=== PATIENT | female | born 1940 | race American Indian/Alaskan Native ===

== ENCOUNTER 2016-08-03 10:57 | Emergency (ER) | payer MEDICARE, OTHER ==
[2016-08-03 11:38] VITALS: BMI 31.8
[2016-08-03 11:41] VITALS: PULSE 83; RESP 17; TEMP 97.9; O2SAT 100
[2016-08-03] MEDS ORDERED: Oxycodone/Acetaminophen 5/325 mg Tab PO STA (12:14)
--- NOTE | 2016-08-03 12:17 | C.PDOC ---
History Of Present Illness 75 y/o female presents to ED with complaint of right ear pain and decreased hearing for 3 days. Patient seen by Dr. Jeffers, started on corticosporin ear drops, which she has been using w/o relief. Denies ear discharge or fever. Notes she has also been taking Tylenol for pain and taking Mobic everyday for arthritis. Time Seen by Provider: 08/03/16 12:02 Chief Complaint (Nursing): ENT Problem History Per: Patient History/Exam Limitations: None Onset/Duration Of Symptoms: Days Current Symptoms Are (Timing): Still Present Past Medical History Reviewed: Historical Data, Nursing Documentation, Vital Signs Vital Signs: Last Vital Signs Temp 97.9 F 08/03/16 11:38 Pulse 83 08/03/16 11:38 Resp 17 08/03/16 11:38 BP 152/75 H 08/03/16 12:30 Pulse Ox 100 08/03/16 15:15 - Medical History PMH: Gastritis, HTN Surgical History: Cholecystectomy - [facility] Procedures CLOSED ENDOSCOPIC BIOPSY OF LARGE INTESTINE (10/18/06) COLONOSCOPY (07/12/03) ESOPHAGOGASTRODUODENOSCOPY [EGD] W/CLOSED BIOPSY (10/18/06) Family History: States: Unknown Family Hx - Social History Hx Tobacco Use: No Hx Alcohol Use: No Hx Substance Use: No - Immunization History Hx Tetanus Toxoid Vaccination: No Hx Influenza Vaccination: Yes (2016) Hx Pneumococcal Vaccination: Yes Review Of Systems Except As Marked, All Systems Reviewed And Found Negative. Constitutional: Negative for: Fever, Chills ENT: Positive for: Ear Pain. Negative for: Ear Discharge, Throat Pain Respiratory: Negative for: Cough, Shortness of Breath, Wheezing Gastrointestinal: Negative for: Nausea, Vomiting Skin: Negative for: Rash Physical Exam - Physical Exam Appears: Non-toxic, No Acute Distress Skin: Normal Color, Warm, Dry Head: Atraumatic, Normacephalic Eye(s): bilateral: Normal Inspection Ear(s): Left: Normal, Right: Other (pain w movment of tragus, moderate swelling and exudates of canal) Nose: Normal Oral Mucosa: Moist Neck: Supple Neurological/Psych: Oriented x3, Normal Speech, Normal Cognition ED Course And Treatment O2 Sat by Pulse Oximetry: 100 (RA) Pulse Ox Interpretation: Normal Progress Note: Treated with Percocet. On reevaluation, patient reports improvement of pain, and is resting comfortably, in no acute distress. Advised follow up with PMD/clinic within 1-2 days. Disposition - Disposition Referrals: Barrett Jeffers MD [Staff Provider] - Disposition: HOME/ ROUTINE Disposition Time: 12:16 Condition: GOOD Prescriptions: Ciprofloxacin/Dexamethasone [Ciprodex 0.3%-0.1% 7.5 Ml] 2 drop TP BID #1 bottle oxyCODONE/Acetaminophen [Percocet 5/325 mg Tab] 1 tab PO Q4H PRN #12 tab PRN Reason: .severe pain Instructions: Otitis Externa (ED) - Clinical Impression Clinical Impression: Otitis externa - Scribe Statement The provider has reviewed the documentation as recorded by the Akil Espana Provider Attestation: All medical record entries made by the Akil were at my direction and personally dictated by me. I have reviewed the chart and agree that the record accurately reflects my personal performance of the history, physical exam, medical decision making, and the department course for this patient. I have also personally directed, reviewed, and agree with the discharge instructions and disposition.
[2016-08-03] MEDS ORDERED: Oxycodone/Acetaminophen 5/325 mg Tab ONE (12:22)
[2016-08-03 12:30] VITALS: BP 152/75
== END 2016-08-03 12:33 | disposition home or self-care (01) ==
LOC: C.ER 10:57
DX: H60.91 Unspecified otitis externa, right ear (principal)

== ENCOUNTER 2016-11-16 11:52 | Emergency (ER) | payer MEDICARE, OTHER ==
[2016-11-16 11:53] VITALS: BMI 31.8
[2016-11-16 12:02] VITALS: RESP 18
[2016-11-16] MEDS ORDERED: Lidocaine 1% Inj (20ml) INFIL STA (12:42)
[2016-11-16] MEDS ORDERED: Lidocaine 1% Inj (20ml) ONE (12:47)
[2016-11-16] MEDS ORDERED: Bacitracin 500 Units/gm Oint Foilpak UD TOP ONE (13:50)
[2016-11-16] MEDS ORDERED: Bacitracin 500 Units/gm Oint Foilpak UD ONE (13:52)
--- NOTE | 2016-11-16 14:03 | C.PDOC ---
History Of Present Illness 75 yo female c/o pain for right thumb pain. Pt notes about 3 weeks ago she was cutting her cuticles, then developed swelling and pain. Pt had the area drained in [place] , swelling improved and but then she noted her nail was not growing appropriately. Pt went to see Dr Aldrich who instructed her to come to ER for further evaluation. Time Seen by Provider: 11/16/16 12:14 Chief Complaint (Nursing): Finger,Hand,&Wrist History Per: Patient History/Exam Limitations: no limitations Onset/Duration Of Symptoms: Days Current Symptoms Are (Timing): Still Present Quality: "Pain" Exacerbating Factor(s): Nothing Recent travel outside of the [place]: No Additional History Per: Patient Past Medical History Reviewed: Historical Data, Nursing Documentation, Vital Signs Vital Signs: Last Vital Signs Temp 97.9 F 11/16/16 14:20 Pulse 61 11/16/16 14:20 Resp 18 11/16/16 14:20 BP 127/77 11/16/16 14:20 Pulse Ox 100 11/16/16 14:51 - Medical History PMH: Gastritis, HTN Surgical History: Cholecystectomy - [facility] Procedures CLOSED ENDOSCOPIC BIOPSY OF LARGE INTESTINE (10/18/06) COLONOSCOPY (07/12/03) ESOPHAGOGASTRODUODENOSCOPY [EGD] W/CLOSED BIOPSY (10/18/06) Family History: States: Unknown Family Hx - Social History Hx Tobacco Use: No Hx Alcohol Use: No Hx Substance Use: No - Immunization History Hx Tetanus Toxoid Vaccination: No Hx Influenza Vaccination: Yes (2016) Hx Pneumococcal Vaccination: Yes Review Of Systems Except As Marked, All Systems Reviewed And Found Negative. Constitutional: Negative for: Fever, Chills Musculoskeletal: Positive for: Hand Pain (right thumb pain) Neurological: Negative for: Weakness, Numbness Physical Exam - Physical Exam Appears: Non-toxic, No Acute Distress Skin: Normal Color, Warm, Dry Head: Atraumatic, Normacephalic Eye(s): bilateral: Normal Inspection Nose: Normal Oral Mucosa: Moist Chest: Symmetrical Respiratory: No Accessory Muscle Use Extremity: Normal ROM, Capillary Refill (<2 sec.), No Deformity, No Swelling, Other ((+) most proximal aspect of nail avulesed (-) swelling, no dishcarge, no erythema.) Neurological/Psych: Oriented x3, Normal Speech ED Course And Treatment O2 Sat by Pulse Oximetry: 100 (on RA) Pulse Ox Interpretation: Normal Progress Note: Pt was evaluated by Dr. Aldrich in the ER and removed the nail. Pt is being discharged home and is instructed to follow up with Dr. Aldrich as scheduled. Disposition - Disposition Referrals: Maurice Aldrich MD [Staff Provider] - Disposition: HOME/ ROUTINE Disposition Time: 14:09 Condition: STABLE Additional Instructions: Follow up with your primary medical doctor or clinic in 2-5 days for further evaluation. Take medications as prescribed. Return to the emergency department at any time if symptoms persist or worsen. 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 - Scribe Statement The provider has reviewed the documentation as recorded by the Scribe Del Ingram All medical record entries made by the Scribe were at my direction and personally dictated by me. I have reviewed the chart and agree that the record accurately reflects my personal performance of the history, physical exam, medical decision making, and the department course for this patient. I have also personally directed, reviewed, and agree with the discharge instructions and disposition.
[2016-11-16 14:22] VITALS: BP 127/77; PULSE 61; TEMP 97.9
[2016-11-16 14:50] VITALS: O2SAT 100
--- NOTE | 2016-12-13 14:38 | OP ---
CONSULTATION AND PROCEDURE NOTE This is a 75-year-old female who presented to the ER with pain in right arm along with an infection that was draining pus and they are cuticles. She also had necrosis of the nail bed and was seen at surgical consultation in ER. GROSS FINDINGS: There was a nail bed infection along with a paronychia which was incised and drained. Also, under local anesthesia, the nail was removed. The wounds were dressed thoroughly. The patient was given a prescription for antibiotics and told to return to my office in 1 week. Maurice Aldrich MD
== END 2016-11-16 14:31 | disposition home or self-care (01) ==
LOC: C.ER 11:52
DX: S61.101A Unspecified open wound of right thumb with damage to nail, initial encounter (principal); W45.8XXA Other foreign body or object entering through skin, initial encounter; Y93.E8 Activity, other personal hygiene

== ENCOUNTER 2018-02-05 10:11 | Inpatient (IN) | payer MEDICARE, OTHER ==
[2018-02-05 10:12] VITALS: BMI 31.8
--- NOTE | 2018-02-05 10:35 | C.PDOC ---
History Of Present Illness 77 years old female with PMHx of COPD presents to ED for complaints of worsening new onset shortness of breath that began at 11:28PM. Patient also reports some bilateral facial and mouth swelling that began yesterday but now improved. Patient states she started on a new glaucoma medication 1 week ago and since then the swelling was very bad that she would accidentally bite the inside of her mouth. However, patient states that swelling today is much improved compared to last night. Patient reports past echo test for unknown reasons. Denies Hx of CHF. Patient reports she takes losartan and hctz at home. Denies chest pain, fever, chills, or any other complaints. Time Seen by Provider: 02/05/18 10:23 Chief Complaint (Nursing): Shortness Of Breath History Per: Patient History/Exam Limitations: no limitations Onset/Duration Of Symptoms: Hrs Current Symptoms Are (Timing): Still Present Recent travel outside of the [place]: No Past Medical History Reviewed: Historical Data, Nursing Documentation, Vital Signs Vital Signs: Last Vital Signs Temp 97.3 F L 02/05/18 10:15 Pulse 91 H 02/05/18 10:15 Resp 18 02/05/18 10:15 BP 188/78 H 02/05/18 10:15 Pulse Ox 100 02/05/18 10:15 - Medical History PMH: Gastritis, HTN Surgical History: Cholecystectomy - [facility] Procedures CLOSED ENDOSCOPIC BIOPSY OF LARGE INTESTINE (10/18/06) COLONOSCOPY (07/12/03) ESOPHAGOGASTRODUODENOSCOPY [EGD] W/CLOSED BIOPSY (10/18/06) Family History: States: Unknown Family Hx - Social History Hx Tobacco Use: No Hx Alcohol Use: No Hx Substance Use: No - Immunization History Hx Tetanus Toxoid Vaccination: No Hx Influenza Vaccination: Yes Hx Pneumococcal Vaccination: No Review Of Systems Constitutional: Negative for: Fever, Chills ENT: Positive for: Mouth Swelling Cardiovascular: Negative for: Chest Pain Respiratory: Positive for: Shortness of Breath Gastrointestinal: Negative for: Nausea, Vomiting, Diarrhea Skin: Positive for: Other (Bilateral facial and mouth swelling ). Negative for: Rash Neurological: Negative for: Weakness, Numbness Physical Exam - Physical Exam Appears: Non-toxic, No Acute Distress Skin: Normal Color, Warm, Dry, No Rash Head: Atraumatic Eye(s): left: Other (Minimal periorbital edema, non-pitting. ) Oral Mucosa: Moist Tongue: Normal Appearing, No Swelling Throat: Normal, No Erythema, No Exudate, No Drooling Neck: Normal ROM, Supple Chest: Symmetrical, No Tenderness Cardiovascular: Rhythm Regular Respiratory: Normal Breath Sounds, No Rales, No Rhonchi, No Wheezing, Other (NARD. Clear to auscultation bilaterally. Speaking in full sentences. No retraction. ) Gastrointestinal/Abdominal: Soft, No Tenderness Extremity: Normal ROM, No Pedal Edema Extremity: Bilateral: Atraumatic, Normal Color And Temperature, Normal ROM Pulses: Left Radial: Normal, Right Radial: Normal Neurological/Psych: Oriented x3, Normal Speech Gait: Steady ED Course And Treatment - Laboratory Results Result Diagrams: 02/05/18 11:00 02/05/18 11:00 O2 Sat by Pulse Oximetry: 100 (RA) Pulse Ox Interpretation: Normal - Radiology CXR: Interpreted by Me, Viewed By Me CXR Interpretation: Yes: No Acute Disease Nexus Criteria: Negative - Other Rad CXR X-Ray: Viewed By Me, Read By Radiologist Interpretation: Chest x-ray single frontal view. HISTORY: Shortness of breath. COMPARISON: 11/04/2012. Findings: Mild venous congestion. Tortuous ectatic aorta. Mild cardiomegaly. Degenerative changes in the spine. Impression: Mild venous congestion. Tortuous ectatic aorta. Mild cardiomegaly. Progress - Re-Evaluation Re-evaluation Note: 02/05/18 12:39 NARD VSS. +DIMER. UNABLE TO PERFORM CTA DUE TO ABN BUN/CREAT. NO V/Q AVAIL @ THIS TIME. D/W DR AMARO WILL ADMIT - Data Reviewed Data Reviewed: Lab, Diagnostic imaging, EKG, Old records Medical Decision Making Medical Decision Making: Plan: * EKG * Blood work * CXR Progress: CXR: * Negative EKG: * Sinus rhythm with 1st degree AV block at 80 bpm * Left BBB Disposition Counseled Patient/Family Regarding: Studies Performed, Diagnosis - Disposition Disposition: HOSPITALIZED Disposition Time: 12:41 Condition: STABLE Forms: [facility] (Nepali) - POA Present On Arrival: None - Clinical Impression Clinical Impression: Dyspnea, D-dimer, elevated, Renal insufficiency - PA / DRAG OUT MAN / Resident Statement MD/DO has reviewed & agrees with the documentation as recorded. - Scribe Statement Tiana Crystal All medical record entries made by the Scribe were at my direction and personally dictated by me. I have reviewed the chart and agree that the record accurately reflects my personal performance of the history, physical exam, medical decision making, and the department course for this patient. I have also personally directed, reviewed, and agree with the discharge instructions and disposition.
[2018-02-05 11:05] LABS: BASO % 0.5 % (0.0-2.0); EOS # 0.1 K/uL (0.0-0.7); EOS % 1.8 % (0.0-4.0); HEMOGLOBIN 11.9 g/dL (11.0-16.0); LYMPH # 1.7 K/uL (1.0-4.3); LYMPH % 27.3 % (20.0-40.0); MEAN CELL VOLUME 93.3 fL (81.0-99.0); MEAN CORPUSCULAR HEMOGLOBIN 31.9 pg (27.0-31.0); MEAN CORPUSCULAR HGB CONC 34.2 g/dL (33.0-37.0); MEAN PLATELET VOLUME 8.7 fL (7.2-11.7); MONO # 0.6 K/uL (0.0-0.8); MONO % 10.4 % (0.0-10.0); NEUT # 3.7 K/uL (1.8-7.0); RBC 3.72 Mil/uL (3.80-5.20); RED CELL DISTRIBUTION WIDTH 13.4 % (11.5-14.5); WHITE BLOOD COUNT 6.2 K/uL (4.8-10.8)
[2018-02-05 11:17] LABS: ALB/GLOB RATIO 1.3 (1.0-2.1); CALCIUM 9.2 mg/dl (8.6-10.4)
--- NOTE | 2018-02-05 11:19 | RAD ---
Chest x-ray single frontal view HISTORY: Shortness of breath. COMPARISON: 11/04/2012 Findings: Mild venous congestion. Tortuous ectatic aorta. Mild cardiomegaly. Degenerative changes in the spine. Impression: Mild venous congestion. Tortuous ectatic aorta. Mild cardiomegaly.
[2018-02-05 11:29] LABS: TROPONIN I 0.017 ng/mL (0.00-0.120)
[2018-02-05] MEDS ORDERED: Enoxaparin 80 mg Syringe SC STA (13:16)
[2018-02-05 18:18] LABS: INR 1.1
[2018-02-05] MEDS ORDERED: Heparin25000 units/250ml 1/2NS 25,000 UNITS/250 ML BAG IV PRN (18:46)
[2018-02-05] MEDS: Dorzolamide 2% Opht Sol 10ml OU SCH (21:54)
--- NOTE | 2018-02-06 09:51 | CARD ---
APPROVED REPORT Date of service: 02/05/2018 EKG Measurement Heart [id number] MD [id number] <Conclusion> Sinus rhythm with 1st degree AV block Left axis deviation Left bundle branch block Abnormal ECG
[2018-02-06] MEDS: Dorzolamide 2% Opht Sol 10ml OU SCH ×2 (09:57→17:42)
[2018-02-06] MEDS: Heparin25000 units/250ml 1/2NS 25,000 UNITS/250 ML BAG IV PRN ×2 (10:25→19:01)
--- NOTE | 2018-02-06 12:00 | US ---
Date of service: 02/06/2018 PROCEDURE: Ultrasound of the Kidneys HISTORY: Elevated BUN CREAT COMPARISON: None available. TECHNIQUE: Sonogram of the kidneys. FINDINGS: RIGHT KIDNEY: Measures: 10.4 x 6.0 x 5.1 cm. Echogenic renal parenchyma. 3.8 x 4.5 x 4.2 cm and 2.7 x 2.8 x 3.0 cm upper pole renal cysts. No obstructing calculus or hydronephrosis identified. LEFT KIDNEY: Measures: 11.0 x 5.2 x 4.4 cm. Echogenic renal parenchyma. No evidence of hydronephrosis, obstructing calculus, or renal cyst. OTHER FINDINGS: Limited visualization of the urinary bladder appears grossly unremarkable. IMPRESSION: Echogenic renal parenchyma may be seen in the setting of medical renal disease. 3.8 x 4.5 x 4.2 cm and 2.7 x 2.8 x 3.0 cm right upper pole renal cysts.
--- NOTE | 2018-02-06 12:52 | CP.PCM.CON ---
History of Present Illness - History of Present Illness History of Present Illness: 77 years old female with PMHx of COPD presents to ED for complaints of worsening new onset shortness of breath that began at 11:28PM. Patient also reports some bilateral facial and mouth swelling that began yesterday but now improved. Patient states she started on a new glaucoma medication 1 week ago and since then the swelling was very bad that she would accidentally bite the inside of her mouth. However, patient states that swelling today is much improved compared to last night. Patient reports past echo test for unknown reasons. Denies Hx of CHF. Patient reports she takes losartan and hctz at home. Denies chest pain, fever, chills, or any other complaints. Denies CKD hx Renal US shows echogenic kidneys Past Medical History Reviewed: Historical Data, Nursing Documentation, Vital Signs Vital Signs: - Medical History PMH: Gastritis, HTN Surgical History: Cholecystectomy, hysterectomy - [facility] Procedures CLOSED ENDOSCOPIC BIOPSY OF LARGE INTESTINE (10/18/06) COLONOSCOPY (07/12/03) ESOPHAGOGASTRODUODENOSCOPY [EGD] W/CLOSED BIOPSY (10/18/06) Family History: States: Unknown Family Hx, no CKD - Social History Hx Tobacco Use: No Hx Alcohol Use: No Hx Substance Use: No - Immunization History Hx Tetanus Toxoid Vaccination: No Hx Influenza Vaccination: Yes Hx Pneumococcal Vaccination: No Review Of Systems Constitutional: Negative for: Fever, Chills ENT: Positive for: Mouth Swelling Cardiovascular: Negative for: Chest Pain Respiratory: Positive for: Shortness of Breath Gastrointestinal: Negative for: Nausea, Vomiting, Diarrhea Skin: Positive for: Other (Bilateral facial and mouth swelling ). Negative for: Rash Neurological: Negative for: Weakness, Numbness Review of Systems - Constitutional Constitutional: absent: As Per HPI, Anorexia, Chills, Daytime Sleepiness, Excessive Sweating, Fatigue, Fever, Frequent Falls, Headache, Increased Appetite, Lethargy, Malaise, Night Sweats, Snoring, Sleep Apnea, Weight Gain, Weight Loss, Weakness, Other - EENT Eyes: absent: As Per HPI, Blind Spots, Blurred Vision, Change in Vision, Decreased Night Vision, Diplopia, Discharge, Dry Eye, Exophthalmos, Floaters, Irritation, Itchy Eyes, Loss of Peripheral Vision, Pain, Photophobia, Requires Corrective Lenses, Sees Flashes, Spots in Vision, Tunnel Vision, Other Visual Disturbances, Loss of Vision, Other Ears: absent: As Per HPI, Decreased Hearing, Ear Discharge, Ear Pain, Tinnitus, Abnormal Hearing, Disequilibrium, Dizziness, Other - Cardiovascular Cardiovascular: Dyspnea on Exertion - Respiratory Respiratory: Cough, Dyspnea on Exertion - Gastrointestinal Gastrointestinal: absent: As Per HPI, Abdominal Pain, Belching, Bloating, Change in Bowel Habits, Change in Stool Character, Coffee Ground Emesis, Constipation, Cramping, Diarrhea, Dyspepsia, Dysphagia, Early Satiety, Excessive Flatus, Fecal Incontinence, Heartburn, Hematemesis, Hematochezia, Loose Stools, Melena, Nausea, Odynophagia, Temesmus, Vomiting, Other - Genitourinary Genitourinary: absent: As Per HPI, Change in Urinary Stream, Difficulty Urinating, Dysuria, Flank Pain, Hematuria, Pyuria, Nocturia, Urinary Incontinence, Urinary Frequency, Urinary Hesitance, Urinary Urgency, Voiding Freq/Small Amts, Freq UTI, Hx Renal/Bladder Calculi, Hx /Renal Surgery, Bladder Distension, Other - Musculoskeletal Musculoskeletal: Muscle Cramps, Muscle Weakness - Neurological Neurological: Weakness Past Patient History - Infectious Disease Hx of Infectious Diseases: None - Past Medical History & Family History Past Medical History?: Yes Past Family History: Reviewed and not pertinent - Past Social History Smoking Status: Never Smoked Chewing Tobacco Use: No Cigar Use: No Alcohol: Occasional Drugs: Denies Home Situation {Lives}: Alone - CARDIAC Hx Hypertension: Yes - NEUROLOGICAL Hx Neurological Disorder: No - HEENT Hx HEENT Problems: Yes Hx Cataracts: Yes (left eye) Hx Glaucoma: Yes - RENAL Hx Chronic Kidney Disease: No - ENDOCRINE/METABOLIC Hx Endocrine Disorders: No - HEMATOLOGICAL/ONCOLOGICAL Hx Blood Transfusions: No - INTEGUMENTARY Hx Dermatological Problems: No - MUSCULOSKELETAL/RHEUMATOLOGICAL Hx Musculoskeletal Disorders: Yes Hx Falls: No Other/Comment: gout - GASTROINTESTINAL Hx Gastrointestinal Disorders: Yes Hx Gastritis: Yes - GENITOURINARY/GYNECOLOGICAL Hx Genitourinary Disorders: No - PSYCHIATRIC Hx Substance Use: No - SURGICAL HISTORY Hx Cholecystectomy: Yes - ANESTHESIA Hx Anesthesia: Yes Hx Anesthesia Reactions: No Hx Malignant Hyperthermia: No Meds Allergies/Adverse Reactions: Allergies Allergy/AdvReac Type Severity Reaction Status Date / Time No Known Allergies Allergy Verified 02/05/18 10:15 - Medications Medications: Current Medications Acetaminophen (Tylenol 325mg Tab) 650 mg PO ONCE PRN PRN Reason: Pain, severe (8-10) Last Admin: 02/06/18 03:54 Dose: 650 mg Acetazolamide (Diamox 250 Mg Tab) 250 mg PO BID [facility] Last Admin: 02/06/18 09:57 Dose: 250 mg Colchicine (Colocrys) 0.6 mg PO DAILY [facility] Last Admin: 02/06/18 09:57 Dose: 0.6 mg Dorzolamide HCl (Trusopt) 0 ml OU BID [facility] Last Admin: 02/06/18 09:57 Dose: 1 u Heparin Sodium/Sodium Chloride (Heparin 39402 Units/250ml 1/2 Normal Saline) 25,000 units in 250 mls @ 13.268 mls/hr IV .[id number] PRN; Protocol PRN Reason: ADJUST RATE PER PROTOCOL Last Admin: 02/06/18 10:25 Dose: 15 units/kg/hr, 13.268 mls/hr Meclizine HCl (Antivert) 25 mg PO BID [facility] Last Admin: 02/06/18 09:57 Dose: 25 mg Montelukast Sodium (Singulair) 10 mg PO [facility] Pregabalin (Lyrica) 50 mg PO BID [facility] Last Admin: 02/06/18 09:57 Dose: 50 mg Physical Exam - Constitutional Appears: Non-toxic, Chronically Ill - Head Exam Head Exam: ATRAUMATIC, NORMAL INSPECTION - Eye Exam Eye Exam: EOMI, Normal appearance - Neck Exam Neck exam: Positive for: Normal Inspection. Negative for: Tenderness - Respiratory Exam Respiratory Exam: Clear to Auscultation Bilateral, NORMAL BREATHING PATTERN - Cardiovascular Exam Cardiovascular Exam: REGULAR RHYTHM, +S1 - GI/Abdominal Exam GI & Abdominal Exam: Firm. absent: Soft - Extremities Exam Extremities exam: Positive for: normal inspection. Negative for: tenderness - Neurological Exam Neurological exam: Alert, CN II-XII Intact - Skin Skin Exam: Dry, Warm Results - Vital Signs Recent Vital Signs: Last Vital Signs Temp 98.0 F 02/06/18 08:25 Pulse 66 02/06/18 08:25 Resp 20 02/06/18 08:25 BP 111/60 02/06/18 08:25 Pulse Ox 98 02/06/18 08:25 - Labs Result Diagrams: 02/05/18 11:00 02/05/18 11:00 Labs: Laboratory Results - last 24 hr 02/05/18 02/06/18 02/06/18 18:03 03:30 07:12 PT 12.0 INR 1.1 APTT 42 H > 400 H* D 101 H* D Assessment & Plan (1) CKD (chronic kidney disease) stage 4, GFR 15-29 ml/min Status: Acute (2) CHF (congestive heart failure) Status: Acute (3) Hypertensive chronic kidney disease with stage 1 through stage 4 chronic kidney disease, or unspecified chronic kidney disease Status: Acute - Assessment and Plan (Free Text) Plan: add diuretic check for proteinuria repeat chemistries; check other renal parameters monitor BP
--- NOTE | 2018-02-06 13:21 | NM ---
Date of service: 02/06/2018 COMPARISON: February 05, 2018. TECHNIQUE: 10.5 mCi technetium 99-m [id number] Gas. 3.4 mCI technetium 99-m MAA administered intravenously. FINDINGS: VENTILATION COMPONENT: Normal. PERFUSION COMPONENT: Heterogeneous distribution of radionuclide. No geographic, segmental, lobar abnormalities apparent on the present examination. IMPRESSION: Low probability ventilation perfusion scan for pulmonary embolism.
--- NOTE | 2018-02-06 13:24 | CP.PCM.PN ---
Subjective - Date & Time of Evaluation Date of Evaluation: 02/06/18 Time of Evaluation: 07:15 - Subjective Subjective: Resident Progress Note for Dr. Jeffers 77 years old female with past medical history of COPD, gastritis, and hypertension presents to ED for complaints of shortness of breath. Patient reports that her shortness of breath started a few days ago, but it became worse last night around midnight. The shortness of breath did not bother her unless she start walking around the house. Patient also reports some facial swelling that began yesterday but now improved. Patient states she started on a new glaucoma medication 1 week ago by her opthalmologist. Currently she does not complain of facial swelling. Patient denies having history of heart or kidney conditions. She further denies fever, chills, chest pain, dizziness, abdominal pain, nausea, vomiting, diarrhea, or urinary symptoms. PMD: Dr. Jeffers, ophthalmology: Dr. Munroe PMHx: COPD, gastritis, and hypertension PSHx: cholecystectomy Allergy: NKDA Social: Denies tobacco and drug use, admits to social alcohol consumption. Lives alone. Home Meds: simvastatin, lyrica, singulair, meloxicam, antivert, losartan, HCTZ, budesonide/formoterol, symbicort Objective - Vital Signs/Intake and Output Vital Signs (last 24 hours): Temp Pulse Resp BP Pulse Ox 98.0 F 66 20 111/60 98 02/06/18 08:25 02/06/18 08:25 02/06/18 08:25 02/06/18 08:25 02/06/18 08:25 Intake and Output: 02/06/18 02/06/18 06:59 18:59 Intake Total 157 Balance 157 - Medications Medications: Current Medications Acetaminophen (Tylenol 325mg Tab) 650 mg PO ONCE PRN PRN Reason: Pain, severe (8-10) Last Admin: 02/06/18 03:54 Dose: 650 mg Acetazolamide (Diamox 250 Mg Tab) 250 mg PO BID [facility] Last Admin: 02/06/18 09:57 Dose: 250 mg Colchicine (Colocrys) 0.6 mg PO DAILY [facility] Last Admin: 02/06/18 09:57 Dose: 0.6 mg Dorzolamide HCl (Trusopt) 0 ml OU BID [facility] Last Admin: 02/06/18 09:57 Dose: 1 u Furosemide (Lasix) 20 mg PO DAILY [facility] Home Med (Bimatoprost [Lumigan]) 1 drop EACHEYE HS [facility] Home Med (Budesonide/Formoterol Fumarate [Symbicort 160-4.5 Mcg Inhaler]) 10.2 gm IH BID [facility] Home Med (Losartan/Hydrochlorothiazide [Hyzaar 100-25 Tablet]) 1 tab PO DAILY [facility] Home Med (Simvastatin [Simvastatin]) 10 mg PO DAILY [facility] Heparin Sodium/Sodium Chloride (Heparin 08483 Units/250ml 1/2 Normal Saline) 25,000 units in 250 mls @ 13.268 mls/hr IV .[id number] PRN; Protocol PRN Reason: ADJUST RATE PER PROTOCOL Last Admin: 02/06/18 10:25 Dose: 15 units/kg/hr, 13.268 mls/hr Meclizine HCl (Antivert) 25 mg PO BID [facility] Last Admin: 02/06/18 09:57 Dose: 25 mg Montelukast Sodium (Singulair) 10 mg PO [facility] Pregabalin (Lyrica) 50 mg PO BID [facility] Last Admin: 02/06/18 09:57 Dose: 50 mg - Labs Labs: 02/05/18 11:00 02/05/18 11:00 PT 12.0 SECONDS (9.7-12.2) 02/05/18 18:03 INR 1.1 02/05/18 18:03 APTT 101 SECONDS (21-34) H* D 02/06/18 07:12 - Additional Findings Additional findings: - Constitutional Appears: Non-toxic, Chronically Ill - Head Exam Head Exam: ATRAUMATIC, NORMAL INSPECTION - Eye Exam Eye Exam: EOMI, Normal appearance - Neck Exam Neck exam: Positive for: Normal Inspection. Negative for: Tenderness - Respiratory Exam Respiratory Exam: Clear to Auscultation Bilateral, NORMAL BREATHING PATTERN - Cardiovascular Exam Cardiovascular Exam: REGULAR RHYTHM, +S1 - GI/Abdominal Exam GI & Abdominal Exam: Firm. absent: Soft - Extremities Exam Extremities exam: Positive for: normal inspection. Negative for: tenderness - Neurological Exam Neurological exam: Alert, CN II-XII Intact - Skin Skin Exam: Dry, Warm Assessment and Plan - Assessment and Plan (Free Text) Assessment: Dyspnea -COPD vs CHF vs PE etiology -Elevated D-Dimer 529 -Follow up on V/Q scan -O2 Saturation unremarkable -CXR shows venous congestions -BNP 101 -Heparin DVT/PE protocol CKD -BUN/Cr 55/2.4 -Nephrology consulted, Dr. Carroll help appreciated -Follow up renal U/S, labs COPD -Fluticasone/Vilanterol 100-25mcg -Singulair 10mg HS CHF -Start Lasix 20mg po HTN -HCTZ 25mg -Losartan 100mg Glaucoma -Acetazolamide 250mg BID -Dorzolamide OU BID Prophylactic measures -SCD -GI ppx not indicated Case discussed with attending Dr. Jeffers
[2018-02-06] MEDS: Rosuvastatin Calcium 2.5 mg Tab PO SCH (22:14)
[2018-02-06] MEDS: Latanoprost 2.5 ml Opht Soln OU SCH (22:15)
[2018-02-06 22:42] LABS: SQUAMOUS EPITHIAL 1 /hpf (0-5); URINE BACTERIA FEW (<OCC); URINE BILIRUBIN NEGATIVE (NEGATIVE); URINE BLOOD NEGATIVE (NEGATIVE); URINE CLARITY Clear (Clear); URINE COLOR Straw (YELLOW); URINE GLUCOSE (UA) NORMAL (Normal); URINE PROTEIN NEGATIVE (NEGATIVE); URINE UROBILINOGEN NORMAL mg/dL (0.2-1.0)
[2018-02-06 22:43] LABS: URINE LEUKOCYTE ESTERASE 1+ Leu/uL (Negative)
[2018-02-07] MEDS ORDERED: Heparin25000 units/250ml 1/2NS 25,000 UNITS/250 ML BAG IV PRN (03:15)
[2018-02-07 07:13] LABS: BASO % 0.4 % (0.0-2.0); EOS # 0.1 K/uL (0.0-0.7); EOS % 1.9 % (0.0-4.0); HEMOGLOBIN 12.4 g/dL (11.0-16.0); LYMPH # 2.2 K/uL (1.0-4.3); LYMPH % 38.9 % (20.0-40.0); MEAN CELL VOLUME 94.8 fL (81.0-99.0); MEAN CORPUSCULAR HEMOGLOBIN 32.4 pg (27.0-31.0); MEAN CORPUSCULAR HGB CONC 34.2 g/dL (33.0-37.0); MEAN PLATELET VOLUME 8.8 fL (7.2-11.7); MONO # 0.6 K/uL (0.0-0.8); NEUT # 2.7 K/uL (1.8-7.0); NEUT % 47.8 % (50.0-75.0); RBC 3.84 Mil/uL (3.80-5.20); RED CELL DISTRIBUTION WIDTH 13.5 % (11.5-14.5); WHITE BLOOD COUNT 5.6 K/uL (4.8-10.8)
[2018-02-07 07:39] LABS: ALB/GLOB RATIO 1.2 (1.0-2.1); ALBUMIN 3.7 g/dL (3.5-5.0); CALCIUM 9.6 mg/dl (8.6-10.4)
[2018-02-07] MEDS: Fluticasone-Vilanterol 100/25mcg Diskus INH SCH (07:45)
[2018-02-07] MEDS: Dorzolamide 2% Opht Sol 10ml OU SCH ×2 (09:19→17:43)
--- NOTE | 2018-02-07 13:25 | CP.PCM.PN ---
Subjective - Date & Time of Evaluation Date of Evaluation: 02/07/18 Time of Evaluation: 13:24 - Subjective Subjective: renal us echogenic kidneys no proteinuria creatinine down to 1.9 meds reviewed seen in echo feels well, no f/c/dizziness/headache/n/v/d/dyspnea/cp/dysuria/hematuria/ rash Objective - Vital Signs/Intake and Output Vital Signs (last 24 hours): Temp Pulse Resp BP Pulse Ox 97.5 F L 82 20 107/66 100 02/07/18 08:39 02/07/18 09:18 02/07/18 08:39 02/07/18 09:19 02/07/18 08:39 Intake and Output: 02/07/18 02/07/18 06:59 18:59 Intake Total 513.6 Balance 513.6 - Medications Medications: Current Medications Acetaminophen (Tylenol 325mg Tab) 650 mg PO ONCE PRN PRN Reason: Pain, severe (8-10) Last Admin: 02/06/18 03:54 Dose: 650 mg Acetazolamide (Diamox 250 Mg Tab) 250 mg PO BID [facility] Last Admin: 02/07/18 09:19 Dose: 250 mg Colchicine (Colocrys) 0.6 mg PO DAILY [facility] Last Admin: 02/07/18 09:19 Dose: 0.6 mg Dorzolamide HCl (Trusopt) 0 ml OU BID [facility] Last Admin: 02/07/18 09:19 Dose: 1 drop Fluticasone/Vilanterol (Breo Ellipta 100-25 Mcg Inh) 1 puff INH RQD [facility] Last Admin: 02/07/18 07:45 Dose: 1 puff Furosemide (Lasix) 20 mg PO DAILY [facility] Last Admin: 02/07/18 09:19 Dose: 20 mg Heparin Sodium/Sodium Chloride (Heparin 50063 Units/250ml 1/2 Normal Saline) 25,000 units in 250 mls @ 10.614 mls/hr IV .[id number] PRN; Protocol PRN Reason: ADJUST RATE PER PROTOCOL Last Admin: 02/07/18 03:07 Dose: 9 units/kg/hr, 7.961 mls/hr Latanoprost (Xalatan Opht) 1 ml OU HS [facility] Last Admin: 02/06/18 22:15 Dose: 1 ml Meclizine HCl (Antivert) 25 mg PO BID [facility] Last Admin: 02/07/18 09:19 Dose: 25 mg Montelukast Sodium (Singulair) 10 mg PO [facility] Last Admin: 02/06/18 22:14 Dose: 10 mg Pregabalin (Lyrica) 50 mg PO BID [facility] Last Admin: 02/07/18 09:19 Dose: 50 mg Rosuvastatin Calcium (Crestor) 2.5 mg PO [facility] Last Admin: 02/06/18 22:14 Dose: 2.5 mg - Labs Labs: 02/07/18 06:56 02/07/18 06:56 PT 12.0 SECONDS (9.7-12.2) 02/05/18 18:03 INR 1.1 02/05/18 18:03 APTT 92 SECONDS (21-34) H D 02/07/18 11:17 - Constitutional Appears: Non-toxic, No Acute Distress - Head Exam Head Exam: NORMAL INSPECTION, NORMOCEPHALIC - Eye Exam Eye Exam: Normal appearance, PERRL - ENT Exam ENT Exam: Mucous Membranes Moist, Normal Exam - Neck Exam Neck Exam: Full ROM, Normal Inspection - Respiratory Exam Respiratory Exam: Clear to Ausculation Bilateral, NORMAL BREATHING PATTERN - Cardiovascular Exam Cardiovascular Exam: REGULAR RHYTHM, RRR - GI/Abdominal Exam GI & Abdominal Exam: Distended, Soft, Diminished Bowel Sounds - Extremities Exam Extremities Exam: Full ROM, Normal Inspection - Neurological Exam Neurological Exam: Alert, Awake, Oriented x3 - Psychiatric Exam Psychiatric exam: Normal Affect, Normal Mood - Skin Skin Exam: Intact, Warm Assessment and Plan (1) CHF (congestive heart failure) Status: Acute (2) CKD (chronic kidney disease) stage 4, GFR 15-29 ml/min Status: Acute (3) Dyspnea Status: Acute (4) Renal insufficiency Status: Acute - Assessment and Plan (Free Text) Assessment: hold losartan, hctz follow echo improving renal function
--- NOTE | 2018-02-07 14:56 | CP.PCM.PN ---
Subjective - Date & Time of Evaluation Date of Evaluation: 02/07/18 Time of Evaluation: 10:20 - Subjective Subjective: Medicine progress note ( Dr. Jeffers's service) Patient was seen and examined at bedside. Patient reports that she is doing well with improving symptoms but still admits to shortness of breath/ chest discomfort with ambulation. Patient is ambulating around the halls. Patient denies any symptoms of fever, chills, nausea, vomiting, palpitations, dizziness, abdominal pain, diarrhea/constipation, numbness/tingling. Objective - Vital Signs/Intake and Output Vital Signs (last 24 hours): Temp Pulse Resp BP Pulse Ox 97.5 F L 64 20 107/66 100 02/07/18 08:39 02/07/18 12:00 02/07/18 08:39 02/07/18 09:19 02/07/18 08:39 Intake and Output: 02/07/18 02/07/18 06:59 18:59 Intake Total 513.6 463.68 Balance 513.6 463.68 - Medications Medications: Current Medications Acetaminophen (Tylenol 325mg Tab) 650 mg PO ONCE PRN PRN Reason: Pain, severe (8-10) Last Admin: 02/06/18 03:54 Dose: 650 mg Acetazolamide (Diamox 250 Mg Tab) 250 mg PO BID [facility] Last Admin: 02/07/18 09:19 Dose: 250 mg Colchicine (Colocrys) 0.6 mg PO DAILY [facility] Last Admin: 02/07/18 09:19 Dose: 0.6 mg Dorzolamide HCl (Trusopt) 0 ml OU BID [facility] Last Admin: 02/07/18 09:19 Dose: 1 drop Fluticasone/Vilanterol (Breo Ellipta 100-25 Mcg Inh) 1 puff INH RQD [facility] Last Admin: 02/07/18 07:45 Dose: 1 puff Furosemide (Lasix) 20 mg PO DAILY [facility] Last Admin: 02/07/18 09:19 Dose: 20 mg Heparin Sodium/Sodium Chloride (Heparin 21138 Units/250ml 1/2 Normal Saline) 25,000 units in 250 mls @ 10.614 mls/hr IV .[id number] PRN; Protocol PRN Reason: ADJUST RATE PER PROTOCOL Last Admin: 02/07/18 03:07 Dose: 9 units/kg/hr, 7.961 mls/hr Latanoprost (Xalatan Opht) 1 ml OU HS [facility] Last Admin: 02/06/18 22:15 Dose: 1 ml Meclizine HCl (Antivert) 25 mg PO BID [facility] Last Admin: 02/07/18 09:19 Dose: 25 mg Montelukast Sodium (Singulair) 10 mg PO [facility] Last Admin: 02/06/18 22:14 Dose: 10 mg Pregabalin (Lyrica) 50 mg PO BID [facility] Last Admin: 02/07/18 09:19 Dose: 50 mg Rosuvastatin Calcium (Crestor) 2.5 mg PO [facility] Last Admin: 02/06/18 22:14 Dose: 2.5 mg - Labs Labs: 02/07/18 06:56 02/07/18 06:56 PT 12.0 SECONDS (9.7-12.2) 02/05/18 18:03 INR 1.1 02/05/18 18:03 APTT 92 SECONDS (21-34) H D 02/07/18 11:17 - Constitutional Appears: Well, No Acute Distress - Head Exam Head Exam: ATRAUMATIC, NORMAL INSPECTION - Eye Exam Eye Exam: EOMI, Normal appearance - ENT Exam ENT Exam: Mucous Membranes Moist - Respiratory Exam Respiratory Exam: Clear to Ausculation Bilateral, NORMAL BREATHING PATTERN. absent: Decreased Breath Sounds, Prolonged Expiratory Phase, Rhonchi, Wheezes, Respiratory Distress - Cardiovascular Exam Cardiovascular Exam: REGULAR RHYTHM, +S1, +S2 - GI/Abdominal Exam GI & Abdominal Exam: Soft, Normal Bowel Sounds. absent: Distended, Firm, Guarding, Rigid, Tenderness - Extremities Exam Extremities Exam: Normal Inspection. absent: Calf Tenderness, Pedal Edema - Neurological Exam Neurological Exam: Alert, Awake, Normal Gait, Oriented x3 - Psychiatric Exam Psychiatric exam: Normal Affect Assessment and Plan (1) Dyspnea Assessment & Plan: Possibly 2/2 CHF or COPD Consultation: Cardiology, Dr. Wylie----> Help appreciated * Management as per recommendation Imaging/Labs: Chest x-ray: Mild venous congestion. Tortuous ectatic aorta. Mild cardiomegaly F/u Echocardiogram BNP: 101 Troponin: 0.0170 Elevated D-dimer: 529 Medication: - Lasix 20mg PO daily - Breo-ellipta 1puff INH daily -Singulair 10mg PO Status: Acute (2) D-dimer, elevated Assessment & Plan: Lung V/Q scan in light of MARKUS: Low probability for pulmonary embolism Status: Acute (3) MARKUS (acute kidney injury) Assessment & Plan: Improving Consultation: - Nephrology, Dr. Nicholson---> Help appreciated * Management as per recommendation Status: Acute (4) HTN (hypertension) Assessment & Plan: -HCTZ 25mg -Losartan 100mg * Held due to MARKUS Status: Acute (5) Glaucoma Assessment & Plan: -Acetazolamide 250mg BID -Dorzolamide OU BID Status: Acute (6) Hx of gout Assessment & Plan: Colchicine 0.6mg PO daily Status: Acute (7) History of vertigo Assessment & Plan: Meclizine 50mg PO BID Status: Acute (8) HLD (hyperlipidemia) Assessment & Plan: Crestor 2.5mg PO HS Status: Acute (9) Prophylactic measure Assessment & Plan: -SCD, Heparin 5,000 units SC Q8H -GI ppx not indicated All plans and management discussed with Dr. Jeffers Status: Acute
--- NOTE | 2018-02-07 18:31 | CARD ---
APPROVED REPORT Date of service: 02/07/2018 EXAM: Two-dimensional and M-mode echocardiogram with Doppler and color Doppler. INDICATION Dyspnea Congestive Heart Failure RISK FACTORS Hypertension 2D DIMENSIONS IVSd1.4 (0.7-1.1cm)LVDd3.4 (3.9-5.9cm) PWd1.5 (0.7-1.1cm)LA Yveisa85 (18-58mL) LVDs2.4 (2.5-4.0cm)FS (%) 30.1 % LVEF (%)60.0 (>50%)LVEF (Golden's)66.03 % M-Mode DIMENSIONS Left Atrium (MM)3.75 (2.5-4.0cm)IVSd1.11 (0.7-1.1cm) Aortic Root2.93 (2.2-3.7cm)LVDd4.52 (4.0-5.6cm) Aortic Cusp Exc.2.02 (1.5-2.0cm)PWd0.89 (0.7-1.1cm) FS (%) 44 %LVDs2.54 (2.0-3.8cm) LVEF (%)75 (>50%) Mitral Valve MV E Wasenxrv73.7cm/sMV A Umrhunbc06.3cm/sE/A ratio0.7 TDI Lateral E' Peak V4.16cm/sMedial E' Peak V4.16cm/sE/Lateral E'15.3 E/Medial E'15.3 Tricuspid Valve TR Peak [id number]/sTR Peak Gr.[id number] LEFT VENTRICLE The left ventricle is normal size. There is mild to moderate concentric left ventricular hypertrophy. The Ejection Fraction is 65-70%. There is normal LV segmental wall motion. Transmitral Doppler flow pattern is Grade I-abnormal relaxation pattern. The left atrial pressure is mildly elevated. RIGHT VENTRICLE The right ventricle is normal size. The right ventricular systolic function is normal. ATRIA The left atrium size is normal. The right atrium size is normal. The interatrial septum is intact with no evidence for an atrial septal defect. AORTIC VALVE The aortic valve is normal in structure. No aortic regurgitation is present. MITRAL VALVE The mitral valve is normal in structure. Mitral regurgitation is trace. TRICUSPID VALVE The tricuspid valve is normal in structure. There is mild tricuspid regurgitation. Right ventricular systolic pressure is estimated at 38 mmHg. There is mild pulmonary hypertension. PULMONIC VALVE The pulmonary valve is normal in structure. There is mild pulmonic valvular regurgitation. GREAT VESSELS The aortic root is normal in size. The IVC is normal in size and collapses >50% with inspiration. PERICARDIAL EFFUSION There is no pericardial effusion. <Conclusion> The left ventricle is normal size. There is mild to moderate concentric left ventricular hypertrophy. The Ejection Fraction is 65-70%. Transmitral Doppler flow pattern is Grade I-abnormal relaxation pattern. The left atrial pressure is mildly elevated. There is mild tricuspid regurgitation. Right ventricular systolic pressure is estimated at 38 mmHg. There is mild pulmonary hypertension. The aortic root is normal in size. There is no pericardial effusion.
[2018-02-07] MEDS: Rosuvastatin Calcium 2.5 mg Tab PO SCH (21:35)
[2018-02-07] MEDS: Latanoprost 2.5 ml Opht Soln OU SCH (21:36)
[2018-02-08 07:19] LABS: BASO % 0.3 % (0.0-2.0); EOS # 0.1 K/uL (0.0-0.7); HEMOGLOBIN 12.6 g/dL (11.0-16.0); LYMPH # 1.9 K/uL (1.0-4.3); LYMPH % 31.8 % (20.0-40.0); MEAN CELL VOLUME 94.6 fL (81.0-99.0); MEAN CORPUSCULAR HEMOGLOBIN 31.9 pg (27.0-31.0); MEAN CORPUSCULAR HGB CONC 33.8 g/dL (33.0-37.0); MEAN PLATELET VOLUME 8.7 fL (7.2-11.7); MONO # 0.6 K/uL (0.0-0.8); MONO % 10.5 % (0.0-10.0); NEUT # 3.3 K/uL (1.8-7.0); NEUT % 55.4 % (50.0-75.0); RBC 3.93 Mil/uL (3.80-5.20); RED CELL DISTRIBUTION WIDTH 13.6 % (11.5-14.5)
[2018-02-08 07:33] LABS: ALB/GLOB RATIO 1.2 (1.0-2.1); ALBUMIN 3.7 g/dL (3.5-5.0); CALCIUM 9.4 mg/dl (8.6-10.4)
[2018-02-08] MEDS: Fluticasone-Vilanterol 100/25mcg Diskus INH SCH (08:11)
[2018-02-08] MEDS: Dorzolamide 2% Opht Sol 10ml OU SCH ×2 (09:23→19:04)
--- NOTE | 2018-02-08 13:29 | CP.PCM.PN ---
Subjective - Date & Time of Evaluation Date of Evaluation: 02/08/18 Time of Evaluation: 07:55 - Subjective Subjective: Medicine progress note ( Dr. Jeffers's service) Patient was seen and examined at bedside. Patient reports that she is doing well with improving symptoms but continues to admit to shortness of breath/ chest discomfort with ambulation. Patient still continues to ambulates around the halls. Patient denies any symptoms of fever, chills, nausea, vomiting, palpitations, dizziness, abdominal pain, diarrhea/constipation, numbness/tingling. Objective - Vital Signs/Intake and Output Vital Signs (last 24 hours): Temp Pulse Resp BP Pulse Ox 97.1 F L 72 20 116/58 L 99 02/08/18 08:36 02/08/18 12:00 02/08/18 08:36 02/08/18 09:22 02/08/18 08:36 Intake and Output: 02/08/18 02/08/18 06:59 18:59 Intake Total 120 Balance 120 - Medications Medications: Current Medications Acetaminophen (Tylenol 325mg Tab) 650 mg PO ONCE PRN PRN Reason: Pain, severe (8-10) Last Admin: 02/06/18 03:54 Dose: 650 mg Acetazolamide (Diamox 250 Mg Tab) 250 mg PO BID [facility] Last Admin: 02/08/18 09:22 Dose: 250 mg Colchicine (Colocrys) 0.6 mg PO DAILY [facility] Last Admin: 02/08/18 09:22 Dose: 0.6 mg Dorzolamide HCl (Trusopt) 0 ml OU BID [facility] Last Admin: 02/08/18 09:23 Dose: 1 drop Fluticasone/Vilanterol (Breo Ellipta 100-25 Mcg Inh) 1 puff INH RQD [facility] Last Admin: 02/08/18 08:11 Dose: 1 puff Furosemide (Lasix) 20 mg PO DAILY [facility] Last Admin: 02/08/18 09:22 Dose: 20 mg Heparin Sodium (Porcine) (Heparin) 5,000 units SC Q8 [facility] Last Admin: 02/08/18 05:53 Dose: 5,000 units Latanoprost (Xalatan Opht) 1 ml OU HS [facility] Last Admin: 02/07/18 21:36 Dose: 1 ml Meclizine HCl (Antivert) 25 mg PO BID [facility] Last Admin: 02/08/18 09:22 Dose: 25 mg Montelukast Sodium (Singulair) 10 mg PO HS [facility] Last Admin: 02/07/18 21:38 Dose: 10 mg Pregabalin (Lyrica) 50 mg PO BID [facility] Last Admin: 02/08/18 09:22 Dose: 50 mg Rosuvastatin Calcium (Crestor) 2.5 mg PO HS [facility] Last Admin: 02/07/18 21:35 Dose: 2.5 mg - Labs Labs: 02/08/18 07:12 02/08/18 07:12 PT 12.0 SECONDS (9.7-12.2) 02/05/18 18:03 INR 1.1 02/05/18 18:03 APTT 92 SECONDS (21-34) H D 02/07/18 11:17 - Constitutional Appears: Well, No Acute Distress - Head Exam Head Exam: ATRAUMATIC, NORMAL INSPECTION - Eye Exam Eye Exam: EOMI, Normal appearance - ENT Exam ENT Exam: Mucous Membranes Moist - Respiratory Exam Respiratory Exam: Clear to Ausculation Bilateral, NORMAL BREATHING PATTERN. absent: Chest Wall Tenderness, Decreased Breath Sounds, Prolonged Expiratory Phase, Rhonchi, Wheezes, Respiratory Distress - Cardiovascular Exam Cardiovascular Exam: REGULAR RHYTHM, +S1, +S2. absent: Tachycardia, Diastolic murmur, Murmur - GI/Abdominal Exam GI & Abdominal Exam: Soft, Normal Bowel Sounds. absent: Distended, Firm, Guarding, Rigid, Tenderness - Extremities Exam Extremities Exam: Normal Inspection. absent: Calf Tenderness, Pedal Edema - Back Exam Back Exam: NORMAL INSPECTION. absent: CVA tenderness (L), CVA tenderness (R) - Neurological Exam Neurological Exam: Alert, Awake, Normal Gait, Oriented x3 - Psychiatric Exam Psychiatric exam: Normal Affect - Skin Skin Exam: Normal Color Assessment and Plan (1) Dyspnea Assessment & Plan: Possibly 2/2 CHF or COPD Consultation: Cardiology, Dr. Wylie----> Help appreciated * Management as per recommendation Imaging/Labs: Chest x-ray: Mild venous congestion. Tortuous ectatic aorta. Mild cardiomegaly F/u Echocardiogram BNP: 101 Troponin: 0.0170 Elevated D-dimer: 529 Medication: - Lasix 20mg PO daily - Breo-ellipta 1puff INH daily -Singulair 10mg PO HS -Duonebs 3ml INH with Acetylcysteine R6H PRN Status: Acute (2) D-dimer, elevated Assessment & Plan: Lung V/Q scan in light of MARKUS: Low probability for pulmonary embolism Status: Acute (3) MARKUS (acute kidney injury) Assessment & Plan: Improving Consultation: - Nephrology, Dr. Nicholson---> Help appreciated * Management as per recommendation Status: Acute (4) HTN (hypertension) Assessment & Plan: -HCTZ 25mg -Losartan 100mg * Held due to MARKUS Status: Acute (5) Glaucoma Assessment & Plan: -Acetazolamide 250mg BID -Dorzolamide OU BID Status: Acute (6) Hx of gout Assessment & Plan: Colchicine 0.6mg PO daily Status: Acute (7) History of vertigo Assessment & Plan: Meclizine 50mg PO BID Status: Acute (8) HLD (hyperlipidemia) Assessment & Plan: Crestor 2.5mg PO HS Status: Acute (9) Prophylactic measure Assessment & Plan: -SCD, Heparin 5,000 units SC Q8H -GI ppx not indicated Disposition: Plans for pharmacologic stress test with Dr. Wylie tomorrow, 02/09/18 All plans and management discussed with Dr. Jeffers Status: Acute
[2018-02-08] MEDS ORDERED: Albuterol-Ipratrop 3 mg / 0.5 (3 ml) UD INH PRN (13:37)
[2018-02-08] MEDS: Rosuvastatin Calcium 2.5 mg Tab PO SCH (21:54)
[2018-02-08] MEDS: Latanoprost 2.5 ml Opht Soln OU SCH (21:56)
--- NOTE | 2018-02-08 22:49 | CP.PCM.CON ---
History of Present Illness - History of Present Illness History of Present Illness: Reason For Consult: Chest pain Denies dyspnea and palpitations Objective - Vital Signs/Intake and Output Vital Signs (last 24 hours): Temp Pulse Resp BP Pulse Ox 97.1 F L 72 20 116/58 L 99 02/08/18 08:36 02/08/18 12:00 02/08/18 08:36 02/08/18 09:22 02/08/18 08:36 Intake and Output: 02/08/18 02/08/18 06:59 18:59 Intake Total 120 Balance 120 - Medications Medications: Current Medications Acetaminophen (Tylenol 325mg Tab) 650 mg PO ONCE PRN PRN Reason: Pain, severe (8-10) Last Admin: 02/06/18 03:54 Dose: 650 mg Acetazolamide (Diamox 250 Mg Tab) 250 mg PO BID [facility] Last Admin: 02/08/18 09:22 Dose: 250 mg Colchicine (Colocrys) 0.6 mg PO DAILY [facility] Last Admin: 02/08/18 09:22 Dose: 0.6 mg Dorzolamide HCl (Trusopt) 0 ml OU BID [facility] Last Admin: 02/08/18 09:23 Dose: 1 drop Fluticasone/Vilanterol (Breo Ellipta 100-25 Mcg Inh) 1 puff INH RQD [facility] Last Admin: 02/08/18 08:11 Dose: 1 puff Furosemide (Lasix) 20 mg PO DAILY [facility] Last Admin: 02/08/18 09:22 Dose: 20 mg Heparin Sodium (Porcine) (Heparin) 5,000 units SC Q8 [facility] Last Admin: 02/08/18 05:53 Dose: 5,000 units Latanoprost (Xalatan Opht) 1 ml OU HS [facility] Last Admin: 02/07/18 21:36 Dose: 1 ml Meclizine HCl (Antivert) 25 mg PO BID [facility] Last Admin: 02/08/18 09:22 Dose: 25 mg Montelukast Sodium (Singulair) 10 mg PO HS [facility] Last Admin: 02/07/18 21:38 Dose: 10 mg Pregabalin (Lyrica) 50 mg PO BID [facility] Last Admin: 02/08/18 09:22 Dose: 50 mg Rosuvastatin Calcium (Crestor) 2.5 mg PO [facility] Last Admin: 02/07/18 21:35 Dose: 2.5 mg - Labs Labs: 02/08/18 07:12 02/08/18 07:12 PT 12.0 SECONDS (9.7-12.2) 02/05/18 18:03 INR 1.1 02/05/18 18:03 APTT 92 SECONDS (21-34) H D 02/07/18 11:17 - Constitutional Appears: Well, No Acute Distress - Head Exam Head Exam: ATRAUMATIC, NORMAL INSPECTION - Eye Exam Eye Exam: EOMI, Normal appearance - ENT Exam ENT Exam: Mucous Membranes Moist - Respiratory Exam Respiratory Exam: Clear to Ausculation Bilateral, NORMAL BREATHING PATTERN. absent: Chest Wall Tenderness, Decreased Breath Sounds, Prolonged Expiratory Phase, Rhonchi, Wheezes, Respiratory Distress - Cardiovascular Exam Cardiovascular Exam: REGULAR RHYTHM, +S1, +S2. absent: Tachycardia, Diastolic murmur, Murmur - GI/Abdominal Exam GI & Abdominal Exam: Soft, Normal Bowel Sounds. absent: Distended, Firm, Guarding, Rigid, Tenderness - Extremities Exam Extremities Exam: Normal Inspection. absent: Calf Tenderness, Pedal Edema - Back Exam Back Exam: NORMAL INSPECTION. absent: CVA tenderness (L), CVA tenderness (R) - Neurological Exam Neurological Exam: Alert, Awake, Normal Gait, Oriented x3 - Psychiatric Exam Psychiatric exam: Normal Affect - Skin Skin Exam: Normal Color Assessment and Plan (1) Dyspnea Assessment & Plan: Possibly 2/2 CHF or COPD Imaging/Labs: Chest x-ray: Mild venous congestion. Tortuous ectatic aorta. Mild cardiomegaly F/u Echocardiogram BNP: 101 Troponin: 0.0170 Elevated D-dimer: 529 Medication: - Lasix 20mg PO daily - Breo-ellipta 1puff INH daily -Singulair 10mg PO HS -Duonebs 3ml INH with Acetylcysteine R6H PRN Status: Acute (2) D-dimer, elevated Assessment & Plan: Lung V/Q scan in light of MARKUS: Low probability for pulmonary embolism Status: Acute (3) MARKUS (acute kidney injury) Assessment & Plan: Improving Consultation: - Nephrology, Dr. Nicholson---> Help appreciated * Management as per recommendation Status: Acute (4) HTN (hypertension) Assessment & Plan: -HCTZ 25mg -Losartan 100mg * Held due to MARKUS Status: Acute (5) Glaucoma Assessment & Plan: -Acetazolamide 250mg BID -Dorzolamide OU BID Status: Acute (6) Hx of gout Assessment & Plan: Colchicine 0.6mg PO daily Status: Acute (7) History of vertigo Assessment & Plan: Meclizine 50mg PO BID Status: Acute (8) HLD (hyperlipidemia) Assessment & Plan: Crestor 2.5mg PO HS Status: Acute (9) Prophylactic measure Assessment & Plan: -SCD, Heparin 5,000 units SC Q8H -GI ppx not indicated Disposition: Plans for pharmacologic stress test in am Past Patient History - Infectious Disease Hx of Infectious Diseases: None - Past Medical History & Family History Past Medical History?: Yes Past Family History: Reviewed and not pertinent - Past Social History Smoking Status: Never Smoked Chewing Tobacco Use: No Cigar Use: No Alcohol: Occasional Drugs: Denies Home Situation {Lives}: Alone - CARDIAC Hx Hypertension: Yes - NEUROLOGICAL Hx Neurological Disorder: No - HEENT Hx HEENT Problems: Yes Hx Cataracts: Yes (left eye) Hx Glaucoma: Yes - RENAL Hx Chronic Kidney Disease: No - ENDOCRINE/METABOLIC Hx Endocrine Disorders: No - HEMATOLOGICAL/ONCOLOGICAL Hx Blood Transfusions: No - INTEGUMENTARY Hx Dermatological Problems: No - MUSCULOSKELETAL/RHEUMATOLOGICAL Hx Musculoskeletal Disorders: Yes Hx Falls: No Other/Comment: gout - GASTROINTESTINAL Hx Gastrointestinal Disorders: Yes Hx Gastritis: Yes - GENITOURINARY/GYNECOLOGICAL Hx Genitourinary Disorders: No - PSYCHIATRIC Hx Substance Use: No - SURGICAL HISTORY Hx Cholecystectomy: Yes - ANESTHESIA Hx Anesthesia: Yes Hx Anesthesia Reactions: No Hx Malignant Hyperthermia: No Meds Allergies/Adverse Reactions: Allergies Allergy/AdvReac Type Severity Reaction Status Date / Time No Known Allergies Allergy Verified 02/05/18 10:15 - Medications Medications: Current Medications Acetaminophen (Tylenol 325mg Tab) 650 mg PO ONCE PRN PRN Reason: Pain, severe (8-10) Last Admin: 02/06/18 03:54 Dose: 650 mg Acetazolamide (Diamox 250 Mg Tab) 250 mg PO BID [facility] Last Admin: 02/08/18 19:04 Dose: 250 mg Acetylcysteine (Acetylcysteine 20%) 4 ml INH RQ6 [facility] Albuterol/Ipratropium (Duoneb 3 Mg/0.5 Mg (3 Ml) Ud) 3 ml INH RQ6 PRN PRN Reason: Shortness of Breath Colchicine (Colocrys) 0.6 mg PO DAILY [facility] Last Admin: 02/08/18 09:22 Dose: 0.6 mg Dorzolamide HCl (Trusopt) 0 ml OU BID [facility] Last Admin: 02/08/18 19:04 Dose: 1 drop Fluticasone/Vilanterol (Breo Ellipta 100-25 Mcg Inh) 1 puff INH RQD [facility] Last Admin: 02/08/18 08:11 Dose: 1 puff Furosemide (Lasix) 20 mg PO DAILY [facility] Last Admin: 02/08/18 09:22 Dose: 20 mg Heparin Sodium (Porcine) (Heparin) 5,000 units SC Q8 [facility] Last Admin: 02/08/18 21:55 Dose: 5,000 units Latanoprost (Xalatan Opht) 1 ml OU HS [facility] Last Admin: 02/08/18 21:56 Dose: 1 ml Meclizine HCl (Antivert) 25 mg PO BID [facility] Last Admin: 02/08/18 19:02 Dose: 25 mg Montelukast Sodium (Singulair) 10 mg PO HS [facility] Last Admin: 02/08/18 21:55 Dose: 10 mg Pregabalin (Lyrica) 50 mg PO BID [facility] Last Admin: 02/08/18 19:02 Dose: 50 mg Rosuvastatin Calcium (Crestor) 2.5 mg PO HS [facility] Last Admin: 02/08/18 21:54 Dose: 2.5 mg Results - Vital Signs Recent Vital Signs: Last Vital Signs Temp 97.8 F 02/08/18 15:35 Pulse 78 02/08/18 15:35 Resp 18 02/08/18 15:35 BP 105/63 02/08/18 15:35 Pulse Ox 99 02/08/18 15:35 - Labs Result Diagrams: 02/08/18 07:12 02/08/18 07:12 Labs: Laboratory Results - last 24 hr 02/07/18 02/08/18 02/08/18 06:56 07:12 07:12 WBC 6.0 RBC 3.93 Hgb 12.6 Hct 37.2 MCV 94.6 MCH 31.9 H MCHC 33.8 RDW 13.6 Plt Count 268 MPV 8.7 Neut % (Auto) 55.4 Lymph % (Auto) 31.8 [place] % (Auto) 10.5 H Eos % (Auto) 2.0 Baso % (Auto) 0.3 Neut # (Auto) 3.3 Lymph # (Auto) 1.9 [place] # (Auto) 0.6 Eos # (Auto) 0.1 Baso # (Auto) 0.0 Sodium 139 Potassium 4.4 Chloride 104 Carbon Dioxide 22 Anion Gap 17 BUN 50 H Creatinine 2.1 H Est GFR ( Amer) 28 Est GFR (Non-Af Amer) 23 Random Glucose 106 H Calcium 9.4 Phosphorus 4.5 Magnesium 2.2 Total Bilirubin 0.4 AST 54 H D ALT 33 Alkaline Phosphatase 58 Total Protein 6.9 Albumin 3.7 Globulin 3.1 Albumin/Globulin Ratio 1.2 PTH Intact Whole Molec 54
[2018-02-09 00:33] VITALS: RESP 20; TEMP 98; O2SAT 100
[2018-02-09] MEDS: Acetylcysteine 20% Inhal Soln (4ml) INH SCH ×2 (02:17→19:23)
[2018-02-09] MEDS: Dorzolamide 2% Opht Sol 10ml OU SCH ×2 (10:00→17:47)
--- NOTE | 2018-02-09 10:00 | CP.PCM.PN ---
Subjective - Date & Time of Evaluation Date of Evaluation: 02/09/18 Time of Evaluation: 09:58 - Subjective Subjective: Comfortable Less SOB no new complaint Creat stable at 2.1 co2 decreased to 22- can stop diamox Objective - Vital Signs/Intake and Output Vital Signs (last 24 hours): Temp Pulse Resp BP Pulse Ox 98 F 64 20 114/70 100 02/08/18 23:40 02/09/18 04:13 02/08/18 23:40 02/08/18 23:40 02/08/18 23:40 Intake and Output: 02/09/18 02/09/18 06:59 18:59 Intake Total 0 Balance 0 - Medications Medications: Current Medications Acetaminophen (Tylenol 325mg Tab) 650 mg PO ONCE PRN PRN Reason: Pain, severe (8-10) Last Admin: 02/06/18 03:54 Dose: 650 mg Acetazolamide (Diamox 250 Mg Tab) 250 mg PO BID [facility] Last Admin: 02/08/18 19:04 Dose: 250 mg Acetylcysteine (Acetylcysteine 20%) 4 ml INH RQ6 [facility] Last Admin: 02/09/18 02:17 Dose: Not Given Albuterol/Ipratropium (Duoneb 3 Mg/0.5 Mg (3 Ml) Ud) 3 ml INH RQ6 PRN PRN Reason: Shortness of Breath Colchicine (Colocrys) 0.6 mg PO DAILY [facility] Last Admin: 02/08/18 09:22 Dose: 0.6 mg Dorzolamide HCl (Trusopt) 0 ml OU BID [facility] Last Admin: 02/08/18 19:04 Dose: 1 drop Fluticasone/Vilanterol (Breo Ellipta 100-25 Mcg Inh) 1 puff INH RQD [facility] Last Admin: 02/08/18 08:11 Dose: 1 puff Furosemide (Lasix) 20 mg PO DAILY [facility] Last Admin: 02/08/18 09:22 Dose: 20 mg Heparin Sodium (Porcine) (Heparin) 5,000 units SC Q8 [facility] Last Admin: 02/09/18 05:44 Dose: 5,000 units Latanoprost (Xalatan Opht) 1 ml OU HS [facility] Last Admin: 02/08/18 21:56 Dose: 1 ml Meclizine HCl (Antivert) 25 mg PO BID [facility] Last Admin: 02/08/18 19:02 Dose: 25 mg Montelukast Sodium (Singulair) 10 mg PO HS [facility] Last Admin: 02/08/18 21:55 Dose: 10 mg Pregabalin (Lyrica) 50 mg PO BID [facility] Last Admin: 02/08/18 19:02 Dose: 50 mg Rosuvastatin Calcium (Crestor) 2.5 mg PO HS [facility] Last Admin: 02/08/18 21:54 Dose: 2.5 mg - Labs Labs: 02/08/18 07:12 02/08/18 07:12 PT 12.0 SECONDS (9.7-12.2) 02/05/18 18:03 INR 1.1 02/05/18 18:03 APTT 92 SECONDS (21-34) H D 02/07/18 11:17 - Constitutional Appears: No Acute Distress, Chronically Ill - Head Exam Head Exam: ATRAUMATIC, NORMAL INSPECTION - Eye Exam Eye Exam: EOMI, Normal appearance - Neck Exam Neck Exam: Normal Inspection. absent: Tenderness - Respiratory Exam Respiratory Exam: Clear to Ausculation Bilateral, NORMAL BREATHING PATTERN - Cardiovascular Exam Cardiovascular Exam: REGULAR RHYTHM, +S1 - GI/Abdominal Exam GI & Abdominal Exam: Soft. absent: Tenderness - Extremities Exam Extremities Exam: Normal Inspection. absent: Tenderness - Neurological Exam Neurological Exam: Awake, CN II-XII Intact - Skin Skin Exam: Dry, Warm Assessment and Plan (1) CKD (chronic kidney disease) stage 4, GFR 15-29 ml/min Status: Acute (2) CHF (congestive heart failure) Status: Acute (3) Hypertensive chronic kidney disease with stage 1 through stage 4 chronic kidney disease, or unspecified chronic kidney disease Status: Acute - Assessment and Plan (Free Text) Plan: continue po lasix stop diamox monitor CKD status- stable now
[2018-02-09 11:19] LABS: BASO % 0.3 % (0.0-2.0); EOS # 0.2 K/uL (0.0-0.7); HEMOGLOBIN 13.4 g/dL (11.0-16.0); LYMPH # 1.7 K/uL (1.0-4.3); LYMPH % 20.4 % (20.0-40.0); MEAN CELL VOLUME 96.1 fL (81.0-99.0); MEAN CORPUSCULAR HEMOGLOBIN 32.5 pg (27.0-31.0); MEAN CORPUSCULAR HGB CONC 33.8 g/dL (33.0-37.0); MEAN PLATELET VOLUME 9.1 fL (7.2-11.7); MONO # 0.7 K/uL (0.0-0.8); MONO % 8.3 % (0.0-10.0); NEUT # 5.8 K/uL (1.8-7.0); RBC 4.13 Mil/uL (3.80-5.20); RED CELL DISTRIBUTION WIDTH 13.6 % (11.5-14.5); WHITE BLOOD COUNT 8.4 K/uL (4.8-10.8)
--- NOTE | 2018-02-09 11:58 | CP.PCM.PN ---
Subjective - Date & Time of Evaluation Date of Evaluation: 02/09/18 Time of Evaluation: 07:30 - Subjective Subjective: Resident Progress Note for Dr. Jeffers Patient was seen and examined at bedside. No acute events reported overnight. Patient is aware of her nuclear stress test later this morning. Otherwise she no longer complains of shortness of breath, chest discomfort or palpitations. She further denies fever, chills, nausea, vomiting, or urinary complaints. Objective - Vital Signs/Intake and Output Vital Signs (last 24 hours): Temp Pulse Resp BP Pulse Ox 98 F 90 20 129/69 100 02/08/18 23:40 02/09/18 07:49 02/08/18 23:40 02/09/18 10:02 02/08/18 23:40 Intake and Output: 02/09/18 02/09/18 06:59 18:59 Intake Total 0 Balance 0 - Medications Medications: Current Medications Acetaminophen (Tylenol 325mg Tab) 650 mg PO ONCE PRN PRN Reason: Pain, severe (8-10) Last Admin: 02/06/18 03:54 Dose: 650 mg Acetylcysteine (Acetylcysteine 20%) 4 ml INH RQ6 [facility] Last Admin: 02/09/18 02:17 Dose: Not Given Albuterol/Ipratropium (Duoneb 3 Mg/0.5 Mg (3 Ml) Ud) 3 ml INH RQ6 PRN PRN Reason: Shortness of Breath Colchicine (Colocrys) 0.6 mg PO DAILY [facility] Last Admin: 02/09/18 09:59 Dose: 0.6 mg Dorzolamide HCl (Trusopt) 0 ml OU BID [facility] Last Admin: 02/09/18 10:00 Dose: 1 drop Fluticasone/Vilanterol (Breo Ellipta 100-25 Mcg Inh) 1 puff INH RQD [facility] Last Admin: 02/08/18 08:11 Dose: 1 puff Furosemide (Lasix) 20 mg PO DAILY [facility] Last Admin: 02/09/18 10:02 Dose: 20 mg Heparin Sodium (Porcine) (Heparin) 5,000 units SC Q8 [facility] Last Admin: 02/09/18 05:44 Dose: 5,000 units Latanoprost (Xalatan Opht) 1 ml OU HS [facility] Last Admin: 02/08/18 21:56 Dose: 1 ml Meclizine HCl (Antivert) 25 mg PO BID [facility] Last Admin: 02/09/18 10:06 Dose: 25 mg Montelukast Sodium (Singulair) 10 mg PO [facility] Last Admin: 02/08/18 21:55 Dose: 10 mg Pregabalin (Lyrica) 50 mg PO BID [facility] Last Admin: 02/09/18 09:58 Dose: 50 mg Rosuvastatin Calcium (Crestor) 2.5 mg PO [facility] Last Admin: 02/08/18 21:54 Dose: 2.5 mg - Labs Labs: 02/09/18 11:13 02/08/18 07:12 PT 12.0 SECONDS (9.7-12.2) 02/05/18 18:03 INR 1.1 02/05/18 18:03 APTT 92 SECONDS (21-34) H D 02/07/18 11:17 - Additional Findings Additional findings: - Constitutional Appears: Well, No Acute Distress - Head Exam Head Exam: ATRAUMATIC, NORMAL INSPECTION - Eye Exam Eye Exam: EOMI, Normal appearance - ENT Exam ENT Exam: Mucous Membranes Moist - Respiratory Exam Respiratory Exam: Clear to Ausculation Bilateral, NORMAL BREATHING PATTERN. absent: Chest Wall Tenderness, Decreased Breath Sounds, Prolonged Expiratory Phase, Rhonchi, Wheezes, Respiratory Distress - Cardiovascular Exam Cardiovascular Exam: REGULAR RHYTHM, +S1, +S2. absent: Tachycardia, Diastolic murmur, Murmur - GI/Abdominal Exam GI & Abdominal Exam: Soft, Normal Bowel Sounds. absent: Distended, Firm, Guarding, Rigid, Tenderness - Extremities Exam Extremities Exam: Normal Inspection. absent: Calf Tenderness, Pedal Edema - Back Exam Back Exam: NORMAL INSPECTION. absent: CVA tenderness (L), CVA tenderness (R) - Neurological Exam Neurological Exam: Alert, Awake, Normal Gait, Oriented x3 - Psychiatric Exam Psychiatric exam: Normal Affect - Skin Skin Exam: Normal Color Assessment and Plan - Assessment and Plan (Free Text) Assessment: (1) Dyspnea Assessment & Plan: Possibly 2/2 CHF or COPD Consultation: Cardiology, Dr. Wylie----> Help appreciated * Management as per recommendation * Nuclear stress test results were normal Imaging/Labs: Chest x-ray: Mild venous congestion. Tortuous ectatic aorta. Mild cardiomegaly Echocardiogram EF 65-70% BNP: 101 Troponin: 0.0170 Elevated D-dimer: 529 Medication: - Lasix 20mg PO daily - Breo-ellipta 1puff INH daily -Singulair 10mg PO HS -Duonebs 3ml INH with Acetylcysteine R6H PRN Status: Acute (2) D-dimer, elevated Assessment & Plan: Lung V/Q scan in light of MARKUS: Low probability for pulmonary embolism Status: Acute (3) MARKUS (acute kidney injury) Assessment & Plan: Improving Consultation: - Nephrology, Dr. Nicholson---> Help appreciated * Management as per recommendation Status: Acute (4) HTN (hypertension) Assessment & Plan: -HCTZ 25mg -Losartan 100mg * Held due to MARKUS Status: Acute (5) Glaucoma Assessment & Plan: -Hold Acetazolamide 250mg BID due to MARKUS -Dorzolamide OU BID Status: Acute (6) Hx of gout Assessment & Plan: Colchicine 0.6mg PO daily Status: Acute (7) History of vertigo Assessment & Plan: Meclizine 50mg PO BID Status: Acute (8) HLD (hyperlipidemia) Assessment & Plan: Crestor 2.5mg PO HS Status: Acute (9) Prophylactic measure Assessment & Plan: -SCD, Heparin 5,000 units SC Q8H -GI ppx not indicated Disposition: Normal stress test, echo and V/Q scan. Patient is medically stable to be discharged home All plans and management discussed with Dr. Jeffers
[2018-02-09 12:19] LABS: ALB/GLOB RATIO 1.3 (1.0-2.1); ALBUMIN 4.5 g/dL (3.5-5.0); CALCIUM 9.7 mg/dl (8.6-10.4)
[2018-02-09] MEDS ORDERED: Potassium Chloride 20 mEq ER Tab PO SCH (15:45)
[2018-02-10 23:52] VITALS: BP 127/80; PULSE 74
== END 2018-02-09 20:36 | disposition home or self-care (01) | DRG 292 ==
LOC: C.ER 10:11 → C.9E 12:42 → C.6T 13:11
PROVIDERS: ADMIT Internal Medicine Pulmonary Disease; ATTEND Internal Medicine Pulmonary Disease
DX: I13.0 Hypertensive heart and chronic kidney disease with heart failure and stage 1 through stage 4 chronic kidney disease, or unspecified chronic kidney disease (principal); N17.9 Acute kidney failure, unspecified; N18.4 Chronic kidney disease, stage 4 (severe); J44.9 Chronic obstructive pulmonary disease, unspecified; I50.9 Heart failure, unspecified; I77.819 Aortic ectasia, unspecified site; R79.1 Abnormal coagulation profile; E78.5 Hyperlipidemia, unspecified; H40.9 Unspecified glaucoma; Z90.49 Acquired absence of other specified parts of digestive tract; Z90.710 Acquired absence of both cervix and uterus

== ENCOUNTER 2018-02-19 08:52 | Observation (INO) | payer MEDICARE, MEDICAID ==
[2018-02-19 08:52] VITALS: BMI 31.8
[2018-02-19 10:19] LABS: BASO % 0.3 % (0.0-2.0); EOS # 0.1 K/uL (0.0-0.7); EOS % 1.6 % (0.0-4.0); HEMOGLOBIN 11.7 g/dL (11.0-16.0); LYMPH # 1.5 K/uL (1.0-4.3); LYMPH % 20.8 % (20.0-40.0); MEAN CELL VOLUME 95.5 fL (81.0-99.0); MEAN CORPUSCULAR HEMOGLOBIN 32.3 pg (27.0-31.0); MEAN CORPUSCULAR HGB CONC 33.8 g/dL (33.0-37.0); MEAN PLATELET VOLUME 8.1 fL (7.2-11.7); MONO # 0.7 K/uL (0.0-0.8); MONO % 9.9 % (0.0-10.0); NEUT # 4.7 K/uL (1.8-7.0); NEUT % 67.4 % (50.0-75.0); RBC 3.63 Mil/uL (3.80-5.20); RED CELL DISTRIBUTION WIDTH 13.6 % (11.5-14.5)
[2018-02-19 10:32] LABS: SQUAMOUS EPITHIAL 1 /hpf (0-5); URINE BACTERIA RARE (<OCC); URINE BILIRUBIN NEGATIVE (NEGATIVE); URINE BLOOD NEGATIVE (NEGATIVE); URINE CLARITY Clear (Clear); URINE COLOR Yellow (YELLOW); URINE GLUCOSE (UA) NORMAL (Normal); URINE LEUKOCYTE ESTERASE 2+ Leu/uL (Negative); URINE PROTEIN NEGATIVE (NEGATIVE); URINE UROBILINOGEN NORMAL mg/dL (0.2-1.0)
[2018-02-19 10:35] LABS: ALB/GLOB RATIO 1.2 (1.0-2.1); ALBUMIN 3.9 g/dL (3.5-5.0); ALT/SGPT 21 U/L (9-52); AST/SGOT 31 U/L (14-36); BLOOD UREA NITROGEN 27 mg/dL (7-17); CALCIUM 9.3 mg/dl (8.6-10.4); GFR NON-AFRICAN AMERICAN 40; INR 1.1; PROTHROMBIN TIME 11.7 SECONDS (9.7-12.2)
[2018-02-19 10:40] LABS: B-TYPE NATRIURETIC PEPTIDE 137 pg/mL (0-900)
--- NOTE | 2018-02-19 10:41 | C.PDOC ---
History Of Present Illness 77-year-old female with a history of hypertension presents to the ED for evaluation of worsening left sided chest pain associated with shortness of breath for 1-2 days. The patient describes the chest pain as a gas pressure. She notes prior admission February 05 for similar symptoms. Denies fever, nausea, vomiting, and any other associated symptoms. Time Seen by Provider: 02/19/18 09:13 Chief Complaint (Nursing): Respiratory Distress History Per: Patient History/Exam Limitations: no limitations Onset/Duration Of Symptoms: Days Current Symptoms Are (Timing): Still Present Recent travel outside of the [place]: No Past Medical History Reviewed: Historical Data, Nursing Documentation, Vital Signs Vital Signs: Last Vital Signs Temp 98.1 F 02/19/18 09:00 Pulse 73 02/19/18 09:00 Resp 15 02/19/18 09:16 BP 152/81 H 02/19/18 09:00 Pulse Ox 100 02/19/18 09:16 - Medical History PMH: Gastritis, HTN Denies: Chronic Kidney Disease Surgical History: Cholecystectomy Denies: Pacemaker - [facility] Procedures CLOSED ENDOSCOPIC BIOPSY OF LARGE INTESTINE (10/18/06) COLONOSCOPY (07/12/03) ESOPHAGOGASTRODUODENOSCOPY [EGD] W/CLOSED BIOPSY (10/18/06) Family History: States: Unknown Family Hx - Social History Hx Tobacco Use: No Hx Alcohol Use: No Hx Substance Use: No - Immunization History Hx Tetanus Toxoid Vaccination: No Hx Influenza Vaccination: Yes Hx Pneumococcal Vaccination: Yes Review Of Systems Except As Marked, All Systems Reviewed And Found Negative. Constitutional: Negative for: Fever Cardiovascular: Positive for: Chest Pain (left-sided. ) Respiratory: Positive for: Shortness of Breath (secondary to chest pain. ) Gastrointestinal: Negative for: Nausea, Vomiting Physical Exam - Physical Exam Appears: Well, Non-toxic, No Acute Distress Skin: Normal Color, Warm, Dry Head: Atraumatic, Normacephalic Eye(s): bilateral: Normal Inspection Oral Mucosa: Moist Neck: Normal ROM, Supple Chest: Symmetrical, No Deformity Cardiovascular: Rhythm Regular, No Murmur Respiratory: Normal Breath Sounds, No Rales, No Rhonchi, No Wheezing Gastrointestinal/Abdominal: Normal Exam, Soft, No Tenderness Neurological/Psych: Oriented x3, Normal Speech, Normal Cognition ED Course And Treatment - Laboratory Results Result Diagrams: 02/19/18 10:09 12/16/18 10:09 ECG Rhythm: Sinus Rhythm Interpretation Of ECG: No ST elevation Rate From EC O2 Sat by Pulse Oximetry: 100 (RA) Pulse Ox Interpretation: Normal - Other Rad CXR X-Ray: Viewed By Me, Read By Radiologist Interpretation: FINDINGS: LUNGS: Clear. PLEURA: No pneumothorax or pleural fluid seen. CARDIOVASCULAR: No aortic atherosclerotic calcification present. Normal. OSSEOUS STRUCTURES: No significant abnormalities. VISUALIZED UPPER ABDOMEN: Normal. OTHER FINDINGS: None. IMPRESSION: No active disease. - CT Scan/US CT Chest Other Rad Studies (CT/US): Read By Radiologist CT/US Interpretation: COMPARISON: Comparison is made to the previous study dated 05/09/2012 previous lung scan dated 02/06/2018. TECHNIQUE: Axial computed tomography images were obtained of the chest in the pulmonary arterial phase of enhancement. Coronal and sagittal reformatted images were created and reviewed. Intravenous contrast dose: 100 mL of Visipaque 320 intravenously. Ra diation dose: Total exam DLP = 512.37 mGy-cm. This CT exam was performed using one or more of the following dose reduction techniques: Automated exposure control, adjustment of the mA and/or kV according to patient size, and/or use of iterative reconstruction technique. FINDINGS: PULMONARY ARTERIES: Unremarkable. No pulmonary embolism. AORTA: The thoracic aorta is ectatic and tortuous. Small foci of atherosclerotic calcification and mild diffuse mural thickening noted in the thoracic aorta. LUNGS: [id number]-hm-mafllzuc pulmonary vascular congestion is noted. No evidence of pneumonia or mass lesion in the lungs. PLEURAL SPACES: No evidence of pleural effusion or pneumothorax. HEART: The heart is enlarged. No evidence of pericardial effusion. LYMPH NODES: No lymphadenopathy. BONES, CHEST WALL: Unremarkable. No fracture or destructive lesion. OTHER FINDINGS: Unremarkable. IMPRESSION: No evidence of acute thromboembolus. Cardiomegaly. Qxhr-zl-bamplxyf pulmonary vascular congestion. Medical Decision Making Medical Decision Making: Plan: -EKG -Blood sent. -CXR -Urinalysis -CT Angio Chest Progress/Update: 1:32pm : Spoke with Hospitalist Dr. Nabil Duffy regarding patients case, who agreed to admit the patient. Disposition - Disposition Disposition: HOSPITALIZED Disposition Time: 13:38 Condition: STABLE - Clinical Impression Clinical Impression: Chest pain at rest Clinical Impression: (Ruled Out): Chest pain due to coronary artery disease - Scribe Statement The provider has reviewed the documentation as recorded by the Scribe (Ny Turner) Provider Attestation: All medical record entries made by the Scribe were at my direction and personally dictated by me. I have reviewed the chart and agree that the record accurately reflects my personal performance of the history, physical exam, medical decision making, and the department course for this patient. I have also personally directed, reviewed, and agree with the discharge instructions and disposition. Decision To Admit - Pt Status Changed To: Hospital Disposition Of: Observation - . Bed Request Type: Telemetry Admitting Physician: Nabil Duffy Patient Diagnosis: Chest pain at rest
[2018-02-19] MEDS ORDERED: Iodixanol 320 MG/ML 100 ML BOTTLE IV ONE (11:13)
--- NOTE | 2018-02-19 12:07 | CT ---
Date of service: 02/19/2018 PROCEDURE: CT Chest with contrast (Pulmonary Angiogram) HISTORY: r/o PE COMPARISON: Comparison is made to the previous study dated 05/09/2012 previous lung scan dated 02/06/2018 TECHNIQUE: Axial computed tomography images were obtained of the chest in the pulmonary arterial phase of enhancement. Coronal and sagittal reformatted images were created and reviewed. Intravenous contrast dose: 100 mL of Visipaque 320 intravenously. Radiation dose: Total exam DLP = 512.37 mGy-cm. This CT exam was performed using one or more of the following dose reduction techniques: Automated exposure control, adjustment of the mA and/or kV according to patient size, and/or use of iterative reconstruction technique. FINDINGS: PULMONARY ARTERIES: Unremarkable. No pulmonary embolism. AORTA: The thoracic aorta is ectatic and tortuous. Small foci of atherosclerotic calcification and mild diffuse mural thickening noted in the thoracic aorta. LUNGS: Fpgs-hy-echnljix pulmonary vascular congestion is noted. No evidence of pneumonia or mass lesion in the lungs. PLEURAL SPACES: No evidence of pleural effusion or pneumothorax. HEART: The heart is enlarged. No evidence of pericardial effusion LYMPH NODES: No lymphadenopathy. BONES, CHEST WALL: Unremarkable. No fracture or destructive lesion OTHER FINDINGS: Unremarkable. IMPRESSION: No evidence of acute thromboembolus. Cardiomegaly. Mxgu-hr-fwlphyiy pulmonary vascular congestion.
--- NOTE | 2018-02-19 13:13 | RAD ---
Date of service: 02/19/2018 PROCEDURE: CHEST RADIOGRAPH, 1 VIEW HISTORY: chest pain COMPARISON: 02/05/2018 FINDINGS: LUNGS: Clear. PLEURA: No pneumothorax or pleural fluid seen. CARDIOVASCULAR: No aortic atherosclerotic calcification present. Normal. OSSEOUS STRUCTURES: No significant abnormalities. VISUALIZED UPPER ABDOMEN: Normal. OTHER FINDINGS: None. IMPRESSION: No active disease.
--- NOTE | 2018-02-19 15:16 | CP.PCM.HP ---
<Sophy Jones - Last Filed: 02/19/18 17:26> History of Present Illness - History of Present Illness History of Present Illness: Patient is a 77 year old female with PMHx of HTN, HLD, PUD, COPD who presents to the ED today with complaints of left chest gas discomfort. Pt reports she has been burping a lot, and has deep discomfort in chest, worse when laying down. Pt reports she was recently seen in the ED in early February with similar complaints but was discharged with unresolved symptoms. Pt reports progressive worsening of gas and chest discomfort, prompting her visit. Pt reports she has decreased appetite as symptoms are worse post prandial, and discomfort is often accompanied by shortness of breath as pt gets anxious. Denies palpitations, cough, nausea, vomiting, diarrhea, dysuria. PMHx: HTN, HLD, PUD, COPD, hiatal hernia, glaucoma PSHx: cholecystectomy, hysterectomy, hemorrhoidectomy, cataracts Allergies: NKDA FamHx: HTN, DM2, heart disease SocHx: denies Present on Admission - Present on Admission Any Indicators Present on Admission: No Review of Systems - EENT Eyes: Change in Vision (due to glaucoma) Ears: Tinnitus (chronic right sided) Nose/Mouth/Throat: absent: Post Nasal Drip - Cardiovascular Cardiovascular: Chest Pain, Dyspnea on Exertion. absent: Leg Edema, Palpitations - Respiratory Respiratory: absent: Dyspnea - Gastrointestinal Gastrointestinal: Heartburn - Genitourinary Genitourinary: absent: Dysuria Past Patient History - Infectious Disease Hx of Infectious Diseases: None - Past Medical History & Family History Past Medical History?: Yes - Past Social History Smoking Status: Never Smoked - CARDIAC Hx Hypertension: Yes Hx Pacemaker: No - NEUROLOGICAL Hx Neurological Disorder: No - HEENT Hx HEENT Problems: Yes Hx Cataracts: Yes (left eye) Hx Glaucoma: Yes - RENAL Hx Chronic Kidney Disease: No - ENDOCRINE/METABOLIC Hx Endocrine Disorders: No - HEMATOLOGICAL/ONCOLOGICAL Hx Blood Transfusions: No - INTEGUMENTARY Hx Dermatological Problems: No - MUSCULOSKELETAL/RHEUMATOLOGICAL Hx Musculoskeletal Disorders: Yes Hx Falls: No Other/Comment: gout - GASTROINTESTINAL Hx Gastritis: Yes - GENITOURINARY/GYNECOLOGICAL Hx Genitourinary Disorders: No - PSYCHIATRIC Hx Substance Use: No - SURGICAL HISTORY Hx Cholecystectomy: Yes - ANESTHESIA Hx Anesthesia: Yes Hx Anesthesia Reactions: No Hx Malignant Hyperthermia: No Meds Allergies/Adverse Reactions: Allergies Allergy/AdvReac Type Severity Reaction Status Date / Time No Known Allergies Allergy Verified 02/19/18 08:59 Physical Exam - Constitutional Appears: Non-toxic, No Acute Distress - Head Exam Head Exam: ATRAUMATIC, NORMAL INSPECTION, NORMOCEPHALIC - Eye Exam Eye Exam: EOMI, Normal appearance - ENT Exam ENT Exam: Mucous Membranes Moist, Normal Exam - Neck Exam Neck exam: Positive for: Normal Inspection - Respiratory Exam Respiratory Exam: Chest Wall Tenderness, Wheezes, NORMAL BREATHING PATTERN. absent: Respiratory Distress Additional comments: left lower anterior chest wall tender to palpation - Cardiovascular Exam Cardiovascular Exam: REGULAR RHYTHM. absent: Tachycardia, Systolic Murmur - GI/Abdominal Exam GI & Abdominal Exam: Normal Bowel Sounds, Soft, Tenderness (tender to palpation epigastrium). absent: Distended - Extremities Exam Extremities exam: Positive for: normal inspection. Negative for: calf tenderness, pedal edema - Neurological Exam Neurological exam: Alert, Oriented x3 - Psychiatric Exam Psychiatric exam: Anxious - Skin Skin Exam: Dry, Intact, Normal Color, Warm Results - Vital Signs Recent Vital Signs: Last Vital Signs Temp 98.1 F 02/19/18 13:11 Pulse 70 02/19/18 14:33 Resp 16 02/19/18 14:33 BP 124/59 L 02/19/18 14:33 Pulse Ox 100 02/19/18 14:33 - Labs Result Diagrams: 02/19/18 10:09 02/19/18 10:09 Labs: Laboratory Results - last 24 hr 02/19/18 02/19/18 02/19/18 10:07 10:09 10:09 WBC 7.0 RBC 3.63 L Hgb 11.7 Hct 34.7 MCV 95.5 MCH 32.3 H MCHC 33.8 RDW 13.6 Plt Count 269 MPV 8.1 Neut % (Auto) 67.4 Lymph % (Auto) 20.8 [place] % (Auto) 9.9 Eos % (Auto) 1.6 Baso % (Auto) 0.3 Neut # (Auto) 4.7 Lymph # (Auto) 1.5 [place] # (Auto) 0.7 Eos # (Auto) 0.1 Baso # (Auto) 0.0 PT INR APTT D-Dimer, Quantitative Sodium 134 Potassium 4.3 Chloride 96 L Carbon Dioxide 27 Anion Gap 15 BUN 27 H Creatinine 1.3 H Est GFR ( Amer) 48 Est GFR (Non-Af Amer) 40 Random Glucose 110 H Calcium 9.3 Total Bilirubin 0.8 AST 31 ALT 21 Alkaline Phosphatase 57 Troponin I < 0.0120 NT-Pro-B Natriuret Pep 137 Total Protein 7.3 Albumin 3.9 Globulin 3.3 Albumin/Globulin Ratio 1.2 Urine Color Yellow Urine Clarity Clear Urine pH 6.0 Ur Specific [place] 1.009 Urine Protein Negative Urine Glucose (UA) Normal Urine Ketones Negative Urine Blood Negative Urine Nitrate Negative Urine Bilirubin Negative Urine Urobilinogen Normal Ur Leukocyte Esterase 2+ H Urine WBC (Auto) 12 H Urine RBC (Auto) 1 Ur Squamous Epith Cells 1 Urine Bacteria Rare 02/19/18 10:09 WBC RBC Hgb Hct MCV MCH MCHC RDW Plt Count MPV Neut % (Auto) Lymph % (Auto) [place] % (Auto) Eos % (Auto) Baso % (Auto) Neut # (Auto) Lymph # (Auto) [place] # (Auto) Eos # (Auto) Baso # (Auto) PT 11.7 INR 1.1 APTT 30 D-Dimer, Quantitative 428 H Sodium Potassium Chloride Carbon Dioxide Anion Gap BUN Creatinine Est GFR ( Amer) Est GFR (Non-Af Amer) Random Glucose Calcium Total Bilirubin AST ALT Alkaline Phosphatase Troponin I NT-Pro-B Natriuret Pep Total Protein Albumin Globulin Albumin/Globulin Ratio Urine Color Urine Clarity Urine pH Ur Specific [place] Urine Protein Urine Glucose (UA) Urine Ketones Urine Blood Urine Nitrate Urine Bilirubin Urine Urobilinogen Ur Leukocyte Esterase Urine WBC (Auto) Urine RBC (Auto) Ur Squamous Epith Cells Urine Bacteria Assessment & Plan - Assessment and Plan (Free Text) Assessment: 77 year old femal w/ PMHx of HTN, HLD, COPD, PUD admitted for evaluation and treatment of chest discomfort Plan: Chest Pain -R/O ACS -f/u cardiac enzymes -EKG Dyspnea -R/O PE -D-Dimer elevated at 428, elevated at last visit as well -CTA negative for thromboembolus -V/Q scan negative at last admission -BNP 137 -CXR shows no active disease -O2, NC 2L prn Suspected GERD -Protonix 40mg po qd -Simethicone 80mg q6 prn -f/u H. Pylori stool -EGD 2015 showed mucosal erythema, consider repeat -Consider re-evaluation of hiatal hernia COPD -Albuterol q6 prn -Singulair 10mg HS HTN -HCTZ 25mg -Cozaar 100mg Ppx -DVT ppx, Heparin 5000 sc q8 -GI ppx, protonix 40mg po Discussed w/ Dr. Duffy -Sophy Jones, PGY-1 <Nabil Duffy H - Last Filed: 02/19/18 18:29> Results - Vital Signs Recent Vital Signs: Last Vital Signs Temp 98.2 F 02/19/18 15:35 Pulse 76 02/19/18 15:35 Resp 20 02/19/18 15:35 BP 175/79 H 02/19/18 15:35 Pulse Ox 100 02/19/18 15:35 - Labs Result Diagrams: 02/19/18 10:09 02/19/18 10:09 Labs: Laboratory Results - last 24 hr 02/19/18 02/19/18 02/19/18 10:07 10:09 10:09 WBC 7.0 RBC 3.63 L Hgb 11.7 Hct 34.7 MCV 95.5 MCH 32.3 H MCHC 33.8 RDW 13.6 Plt Count 269 MPV 8.1 Neut % (Auto) 67.4 Lymph % (Auto) 20.8 [place] % (Auto) 9.9 Eos % (Auto) 1.6 Baso % (Auto) 0.3 Neut # (Auto) 4.7 Lymph # (Auto) 1.5 [place] # (Auto) 0.7 Eos # (Auto) 0.1 Baso # (Auto) 0.0 PT INR APTT D-Dimer, Quantitative Sodium 134 Potassium 4.3 Chloride 96 L Carbon Dioxide 27 Anion Gap 15 BUN 27 H Creatinine 1.3 H Est GFR ( Amer) 48 Est GFR (Non-Af Amer) 40 Random Glucose 110 H Calcium 9.3 Total Bilirubin 0.8 AST 31 ALT 21 Alkaline Phosphatase 57 Troponin I < 0.0120 NT-Pro-B Natriuret Pep 137 Total Protein 7.3 Albumin 3.9 Globulin 3.3 Albumin/Globulin Ratio 1.2 Urine Color Yellow Urine Clarity Clear Urine pH 6.0 Ur Specific [place] 1.009 Urine Protein Negative Urine Glucose (UA) Normal Urine Ketones Negative Urine Blood Negative Urine Nitrate Negative Urine Bilirubin Negative Urine Urobilinogen Normal Ur Leukocyte Esterase 2+ H Urine WBC (Auto) 12 H Urine RBC (Auto) 1 Ur Squamous Epith Cells 1 Urine Bacteria Rare 02/19/18 02/19/18 10:09 17:31 WBC RBC Hgb Hct MCV MCH MCHC RDW Plt Count MPV Neut % (Auto) Lymph % (Auto) [place] % (Auto) Eos % (Auto) Baso % (Auto) Neut # (Auto) Lymph # (Auto) [place] # (Auto) Eos # (Auto) Baso # (Auto) PT 11.7 INR 1.1 APTT 30 D-Dimer, Quantitative 428 H Sodium Potassium Chloride Carbon Dioxide Anion Gap BUN Creatinine Est GFR ( Amer) Est GFR (Non-Af Amer) Random Glucose Calcium Total Bilirubin AST ALT Alkaline Phosphatase Troponin I < 0.0120 NT-Pro-B Natriuret Pep Total Protein Albumin Globulin Albumin/Globulin Ratio Urine Color Urine Clarity Urine pH Ur Specific [place] Urine Protein Urine Glucose (UA) Urine Ketones Urine Blood Urine Nitrate Urine Bilirubin Urine Urobilinogen Ur Leukocyte Esterase Urine WBC (Auto) Urine RBC (Auto) Ur Squamous Epith Cells Urine Bacteria Attending/Attestation - Attestation I have personally seen and examined this patient.: Yes I have fully participated in the care of the patient.: Yes I have reviewed all pertinent clinical information: Yes Notes (Text): 02/19/18 18:28 Hospitalist attending: Hospitalist service is currently covering the patient's primary care physician who will be returning tomorrow. Patient was seen and examined by me, reviewed the above note by the medical staffing coordinator. We saw the patient together. The patient was not in any acute distress when I came and examined her with the medical staffing coordinator. The pain that she is reporting in her chest is somewhat vague however after talking to her it appears that this may be secondary to her history of a hiatal hernia, acid reflux, and GERD. Nevertheless we will check additional troponins, EKGs. She's had a CTA which was negative for pulmonary embolism, first cardiac enzyme was negative Nabil Duffy
[2018-02-19] MEDS: Pantoprazole 40 mg EC Tab PO SCH (16:42)
[2018-02-19] MEDS ORDERED: Albuterol 0.083% Inhal Sol (2.5 mg/3 mL) UD INH PRN (16:46)
[2018-02-19] MEDS ORDERED: Simethicone 80 mg Chewtab PO PRN (16:49)
[2018-02-19] MEDS: Rosuvastatin Calcium 2.5 mg Tab PO SCH (21:10)
[2018-02-20 08:42] LABS: BASO % 0.3 % (0.0-2.0); EOS # 0.1 K/uL (0.0-0.7); EOS % 1.5 % (0.0-4.0); HEMOGLOBIN 11.7 g/dL (11.0-16.0); INR 1.1; LYMPH # 1.6 K/uL (1.0-4.3); LYMPH % 22.8 % (20.0-40.0); MEAN CELL VOLUME 95.5 fL (81.0-99.0); MEAN CORPUSCULAR HEMOGLOBIN 32.5 pg (27.0-31.0); MEAN PLATELET VOLUME 7.8 fL (7.2-11.7); MONO # 0.6 K/uL (0.0-0.8); MONO % 8.8 % (0.0-10.0); NEUT # 4.6 K/uL (1.8-7.0); NEUT % 66.6 % (50.0-75.0); PROTHROMBIN TIME 11.7 SECONDS (9.7-12.2); RBC 3.6 Mil/uL (3.80-5.20); RED CELL DISTRIBUTION WIDTH 13.4 % (11.5-14.5)
[2018-02-20 08:47] LABS: ALB/GLOB RATIO 1.1 (1.0-2.1); ALBUMIN 3.6 g/dL (3.5-5.0); CALCIUM 9.3 mg/dl (8.6-10.4)
[2018-02-20] MEDS: Pantoprazole 40 mg EC Tab PO SCH (09:19)
--- NOTE | 2018-02-20 10:06 | CP.PCM.PN ---
Subjective - Date & Time of Evaluation Date of Evaluation: 02/20/18 Time of Evaluation: 10:05 - Subjective Subjective: PGY2 Medicine Note for Dr. Jeffers Patient seen and examined this morning at bedside. No acute events overnight. Patient is feeling much better today and is no longer experiencing any chest pain. She reports increased belching and passing of flatus after taking simethicone yesterday. Her symptoms of chest pain and upper abdominal pain resolved with the pass of gas. She is tolerating her diet today but reports that over the past couple of days she has been feeling increasingly short of breath. She denies any fevers, chills, nausea, vomiting, diarrhea, constipation numbness, tingling, palpitations, headaches, lightheadedness or dizziness. Objective - Vital Signs/Intake and Output Vital Signs (last 24 hours): Temp Pulse Resp BP Pulse Ox 97.7 F 75 20 122/56 L 99 02/20/18 07:23 02/20/18 09:18 02/20/18 07:23 02/20/18 09:18 02/20/18 07:23 - Medications Medications: Current Medications Albuterol Sulfate (Albuterol 0.083% Inhal Reina (2.5 Mg/3 Ml) Ud) 2.5 mg INH RQ6 PRN PRN Reason: Shortness of Breath Heparin Sodium (Porcine) (Heparin) 5,000 units SC Q8 [facility] Last Admin: 02/20/18 06:02 Dose: 5,000 units Hydrochlorothiazide (Hydrodiuril) 25 mg PO DAILY [facility] Last Admin: 02/20/18 09:19 Dose: 25 mg Losartan Potassium (Cozaar) 100 mg PO DAILY [facility] Last Admin: 02/20/18 09:19 Dose: 100 mg Meclizine HCl (Antivert) 25 mg PO BID [facility] Last Admin: 02/20/18 09:18 Dose: 25 mg Montelukast Sodium (Singulair) 10 mg PO HS [facility] Last Admin: 02/19/18 21:10 Dose: 10 mg Pantoprazole Sodium (Protonix Ec Tab) 40 mg PO DAILY [facility] Last Admin: 02/20/18 09:19 Dose: 40 mg Pneumococcal Polyvalent Vaccine (Pneumovax 23 Vaccine) 0.5 ml IM .ONCE ONE Stop: 02/22/18 10:01 Pregabalin (Lyrica) 50 mg PO BID [facility] Last Admin: 02/20/18 09:19 Dose: 50 mg Rosuvastatin Calcium (Crestor) 2.5 mg PO HS [facility] Last Admin: 02/19/18 21:10 Dose: 2.5 mg Simethicone (Mylicon Chew Tab) 80 mg PO Q6 PRN PRN Reason: GI distress - Labs Labs: 02/20/18 08:28 02/20/18 08:28 PT 11.7 SECONDS (9.7-12.2) 02/20/18 08:28 INR 1.1 02/20/18 08:28 APTT 32 SECONDS (21-34) 02/20/18 08:28 - Constitutional Appears: Non-toxic, No Acute Distress - Head Exam Head Exam: ATRAUMATIC, NORMOCEPHALIC - Eye Exam Eye Exam: Normal appearance - ENT Exam ENT Exam: Mucous Membranes Moist - Neck Exam Neck Exam: absent: Lymphadenopathy - Respiratory Exam Respiratory Exam: Clear to Ausculation Bilateral, NORMAL BREATHING PATTERN. absent: Accessory Muscle Use, Rales, Rhonchi, Wheezes, Respiratory Distress - Cardiovascular Exam Cardiovascular Exam: REGULAR RHYTHM, +S1, +S2 - GI/Abdominal Exam GI & Abdominal Exam: Soft, Normal Bowel Sounds. absent: Distended, Firm, Guarding, Rigid, Tenderness - Extremities Exam Extremities Exam: absent: Calf Tenderness, Pedal Edema - Neurological Exam Neurological Exam: Alert, Awake, Oriented x3 - Psychiatric Exam Psychiatric exam: Normal Affect, Normal Mood - Skin Skin Exam: Dry, Warm Assessment and Plan - Assessment and Plan (Free Text) Plan: Dyspnea - Cardiology consulted, Dr. Wylie * Patient's COPD is under control and had a normal chemical stress test on 02/09. * May need cardiac cath - will follow up recs - D-Dimer elevated at 428, elevated at last visit as well - CTA 02/19 * No evidence of thromboembolus. Cardiomegaly. [id number] pulmonary vascular congestion. - BNP 137 - CXR shows no active disease - O2, NC 2L prn Chest Pain - resolved - R/O ACS -FLIP negative x3 GERD - Protonix 40mg po qd - Simethicone 80mg q6 prn - f/u H. Pylori stool - EGD 2015 showed mucosal erythema, consider repeat - Consider re-evaluation of hiatal hernia COPD - Albuterol 0.083% 2.5mg INH q6 prn - Singulair 10mg PO HS HTN - HCTZ 25mg PO daily - Cozaar 100mg PO daily Prophylactic Care - DVT ppx, Heparin 5000 sc q8 - GI ppx, protonix 40mg po All medical management per Dr. Aury Swan Elin PGY2
--- NOTE | 2018-02-20 18:04 | CARD ---
APPROVED REPORT Date of service: 02/19/2018 EKG Measurement Heart [id number] <Conclusion> Normal sinus rhythm Left axis deviation Left ventricular hypertrophy with QRS widening Abnormal ECG
--- NOTE | 2018-02-20 20:05 | CP.PCM.CON ---
History of Present Illness - History of Present Illness History of Present Illness: CC: Cardiac Cath Patient is a 77 year old female with PMHx of HTN, HLD, PUD, COPD who presents to the ED today with complaints of left chest gas discomfort. Pt reports she has been burping a lot, and has deep discomfort in chest, worse when laying down. Pt reports she was recently seen in the ED in early February with similar comp laints but was discharged with unresolved symptoms. Pt reports progressive worsening of gas and chest discomfort, prompting her visit. Pt reports she has decreased appetite as symptoms are worse post prandial, and discomfort is often accompanied by shortness of breath as pt gets anxious. Denies palpitations, cough, nausea, vomiting, diarrhea, dysuria. PMHx: HTN, HLD, PUD, COPD, hiatal hernia, glaucoma PSHx: cholecystectomy, hysterectomy, hemorrhoidectomy, cataracts Allergies: NKDA FamHx: HTN, DM2, heart disease SocHx: denies Present on Admission - Present on Admission Any Indicators Present on Admission: No Review of Systems - EENT Eyes: Change in Vision (due to glaucoma) Ears: Tinnitus (chronic right sided) Nose/Mouth/Throat: absent: Post Nasal Drip - Cardiovascular Cardiovascular: Chest Pain, Dyspnea on Exertion. absent: Leg Edema, Palpitations - Respiratory Respiratory: absent: Dyspnea - Gastrointestinal Gastrointestinal: Heartburn - Genitourinary Genitourinary: absent: Dysuria Physical Exam - Constitutional Appears: Non-toxic, No Acute Distress - Head Exam Head Exam: ATRAUMATIC, NORMAL INSPECTION, NORMOCEPHALIC - Eye Exam Eye Exam: EOMI, Normal appearance - ENT Exam ENT Exam: Mucous Membranes Moist, Normal Exam - Neck Exam Neck exam: Positive for: Normal Inspection - Respiratory Exam Respiratory Exam: Chest Wall Tenderness, Wheezes, NORMAL BREATHING PATTERN. absent: Respiratory Distress Additional comments: left lower anterior chest wall tender to palpation - Cardiovascular Exam Cardiovascular Exam: REGULAR RHYTHM. absent: Tachycardia, Systolic Murmur - GI/Abdominal Exam GI & Abdominal Exam: Normal Bowel Sounds, Soft, Tenderness (tender to palpation epigastrium). absent: Distended - Extremities Exam Extremities exam: Positive for: normal inspection. Negative for: calf tenderness, pedal edema - Neurological Exam Neurological exam: Alert, Oriented x3 - Psychiatric Exam Psychiatric exam: Anxious - Skin Skin Exam: Dry, Intact, Normal Color, Warm Assessment & Plan - Assessment and Plan (Free Text) Assessment: 77 year old femal w/ PMHx of HTN, HLD, COPD, PUD admitted for evaluation and treatment of chest discomfort Plan: Chest Pain -Trops negative -f/u cardiac enzymes -EKG Dyspnea -No PE -D-Dimer elevated at 428, elevated at last visit as well -CTA negative for thromboembolus -V/Q scan negative at last admission -BNP 137 -CXR shows no active disease -O2, NC 2L prn Suspected GERD -Protonix 40mg po qd -Simethicone 80mg q6 prn -f/u H. Pylori stool -EGD 2016 showed mucosal erythema, consider repeat -Consider re-evaluation of hiatal hernia COPD -Albuterol q6 prn -Singulair 10mg HS HTN -HCTZ 25mg -Cozaar 100mg Ppx -DVT ppx, Heparin 5000 sc q8 -GI ppx, protonix 40mg po Due to recurrent chest pain and dyspnea decided to do [facility] D/W the patient who agreed for the procedure Past Patient History - Infectious Disease Hx of Infectious Diseases: None - Past Medical History & Family History Past Medical History?: Yes - Past Social History Smoking Status: Never Smoked - CARDIAC Hx Hypertension: Yes Hx Pacemaker: No - NEUROLOGICAL Hx Neurological Disorder: No - HEENT Hx HEENT Problems: Yes Hx Cataracts: Yes (left eye) Hx Glaucoma: Yes - RENAL Hx Chronic Kidney Disease: No - ENDOCRINE/METABOLIC Hx Endocrine Disorders: No - HEMATOLOGICAL/ONCOLOGICAL Hx Blood Transfusions: No - INTEGUMENTARY Hx Dermatological Problems: No - MUSCULOSKELETAL/RHEUMATOLOGICAL Hx Musculoskeletal Disorders: Yes Hx Falls: No Other/Comment: gout - GASTROINTESTINAL Hx Gastritis: Yes - GENITOURINARY/GYNECOLOGICAL Hx Genitourinary Disorders: No - PSYCHIATRIC Hx Substance Use: No - SURGICAL HISTORY Hx Cholecystectomy: Yes - ANESTHESIA Hx Anesthesia: Yes Hx Anesthesia Reactions: No Hx Malignant Hyperthermia: No Meds Allergies/Adverse Reactions: Allergies Allergy/AdvReac Type Severity Reaction Status Date / Time No Known Allergies Allergy Verified 02/19/18 08:59 - Medications Medications: Current Medications Albuterol Sulfate (Albuterol 0.083% Inhal Reina (2.5 Mg/3 Ml) Ud) 2.5 mg INH RQ6 PRN PRN Reason: Shortness of Breath Heparin Sodium (Porcine) (Heparin) 5,000 units SC Q8 [facility] Last Admin: 02/20/18 13:41 Dose: 5,000 units Hydrochlorothiazide (Hydrodiuril) 25 mg PO DAILY [facility] Last Admin: 02/20/18 09:19 Dose: 25 mg Losartan Potassium (Cozaar) 100 mg PO DAILY [facility] Last Admin: 02/20/18 09:19 Dose: 100 mg Meclizine HCl (Antivert) 25 mg PO BID [facility] Last Admin: 02/20/18 17:25 Dose: 25 mg Montelukast Sodium (Singulair) 10 mg PO HS [facility] Last Admin: 02/19/18 21:10 Dose: 10 mg Pantoprazole Sodium (Protonix Ec Tab) 40 mg PO DAILY [facility] Last Admin: 02/20/18 09:19 Dose: 40 mg Pneumococcal Polyvalent Vaccine (Pneumovax 23 Vaccine) 0.5 ml IM .ONCE ONE Stop: 02/22/18 10:01 Pregabalin (Lyrica) 50 mg PO BID [facility] Last Admin: 02/20/18 17:25 Dose: 50 mg Rosuvastatin Calcium (Crestor) 2.5 mg PO HS [facility] Last Admin: 02/19/18 21:10 Dose: 2.5 mg Simethicone (Mylicon Chew Tab) 80 mg PO Q6 PRN PRN Reason: GI distress Results - Vital Signs Recent Vital Signs: Last Vital Signs Temp 98.4 F 02/20/18 15:00 Pulse 68 02/20/18 16:00 Resp 18 02/20/18 15:00 BP 102/61 02/20/18 15:00 Pulse Ox 99 02/20/18 15:00 - Labs Result Diagrams: 02/20/18 08:28 02/20/18 08:28 Labs: Laboratory Results - last 24 hr 02/19/18 02/20/18 02/20/18 22:56 08:28 08:28 WBC 7.0 RBC 3.60 L Hgb 11.7 Hct 34.4 MCV 95.5 MCH 32.5 H MCHC 34.0 RDW 13.4 Plt Count 297 MPV 7.8 Neut % (Auto) 66.6 Lymph % (Auto) 22.8 [place] % (Auto) 8.8 Eos % (Auto) 1.5 Baso % (Auto) 0.3 Neut # (Auto) 4.6 Lymph # (Auto) 1.6 [place] # (Auto) 0.6 Eos # (Auto) 0.1 Baso # (Auto) 0.0 PT 11.7 INR 1.1 APTT 32 Sodium Potassium Chloride Carbon Dioxide Anion Gap BUN Creatinine Est GFR ( Amer) Est GFR (Non-Af Amer) Random Glucose Calcium Total Bilirubin AST ALT Alkaline Phosphatase Troponin I < 0.0120 Total Protein Albumin Globulin Albumin/Globulin Ratio 02/20/18 08:28 WBC RBC Hgb Hct MCV MCH MCHC RDW Plt Count MPV Neut % (Auto) Lymph % (Auto) [place] % (Auto) Eos % (Auto) Baso % (Auto) Neut # (Auto) Lymph # (Auto) [place] # (Auto) Eos # (Auto) Baso # (Auto) PT INR APTT Sodium 137 Potassium 4.5 Chloride 100 Carbon Dioxide 29 Anion Gap 13 BUN 22 H Creatinine 1.2 Est GFR ( Amer) 53 Est GFR (Non-Af Amer) 43 Random Glucose 102 Calcium 9.3 Total Bilirubin 0.7 AST 34 ALT 25 Alkaline Phosphatase 53 Troponin I Total Protein 7.0 Albumin 3.6 Globulin 3.4 Albumin/Globulin Ratio 1.1
[2018-02-20] MEDS: Rosuvastatin Calcium 2.5 mg Tab PO SCH (21:33)
[2018-02-21 00:10] VITALS: RESP 20
[2018-02-21 06:58] LABS: BASO % 0.5 % (0.0-2.0); EOS # 0.2 K/uL (0.0-0.7); EOS % 2.3 % (0.0-4.0); HEMOGLOBIN 11.3 g/dL (11.0-16.0); LYMPH # 2.1 K/uL (1.0-4.3); LYMPH % 30.3 % (20.0-40.0); MEAN CELL VOLUME 94.4 fL (81.0-99.0); MEAN CORPUSCULAR HGB CONC 33.9 g/dL (33.0-37.0); MEAN PLATELET VOLUME 7.7 fL (7.2-11.7); MONO # 0.7 K/uL (0.0-0.8); MONO % 9.6 % (0.0-10.0); NEUT % 57.3 % (50.0-75.0); RBC 3.52 Mil/uL (3.80-5.20); RED CELL DISTRIBUTION WIDTH 13.6 % (11.5-14.5)
[2018-02-21 07:05] LABS: PROTHROMBIN TIME 11.3 SECONDS (9.7-12.2)
[2018-02-21 07:27] LABS: ALB/GLOB RATIO 1.1 (1.0-2.1); ALBUMIN 3.3 g/dL (3.5-5.0)
[2018-02-21] MEDS ORDERED: Iodixanol 320 MG/ML 100 ML BOTTLE IV ONE ×2 (08:41→10:34)
--- NOTE | 2018-02-21 09:12 | CP.PCM.PN ---
Subjective - Date & Time of Evaluation Date of Evaluation: 02/21/18 Time of Evaluation: 13:55 - Subjective Subjective: PGY2 Medicine Note for Dr. Jeffers Patient seen and examined patient this morning. Patient went for cardiac cath this morning with Dr. Wylie. Patient is feeling well and has no complaints today. Objective - Vital Signs/Intake and Output Vital Signs (last 24 hours): Temp Pulse Resp BP Pulse Ox 97.9 F 76 20 117/60 99 02/21/18 08:17 02/21/18 08:17 02/21/18 08:17 02/21/18 08:17 02/21/18 08:17 Intake and Output: 02/21/18 02/21/18 06:59 18:59 Intake Total 0 Balance 0 - Medications Medications: Current Medications Albuterol Sulfate (Albuterol 0.083% Inhal Reina (2.5 Mg/3 Ml) Ud) 2.5 mg INH RQ6 PRN PRN Reason: Shortness of Breath Heparin Sodium (Porcine) (Heparin) 5,000 units SC Q8 [facility] Last Admin: 02/21/18 06:11 Dose: Not Given Hydrochlorothiazide (Hydrodiuril) 25 mg PO DAILY [facility] Last Admin: 02/20/18 09:19 Dose: 25 mg Losartan Potassium (Cozaar) 100 mg PO DAILY [facility] Last Admin: 02/21/18 09:11 Dose: Not Given Meclizine HCl (Antivert) 25 mg PO BID [facility] Last Admin: 02/20/18 17:25 Dose: 25 mg Montelukast Sodium (Singulair) 10 mg PO HS [facility] Last Admin: 02/20/18 21:33 Dose: 10 mg Pantoprazole Sodium (Protonix Ec Tab) 40 mg PO DAILY [facility] Last Admin: 02/20/18 09:19 Dose: 40 mg Pneumococcal Polyvalent Vaccine (Pneumovax 23 Vaccine) 0.5 ml IM .ONCE ONE Stop: 02/22/18 10:01 Pregabalin (Lyrica) 50 mg PO BID [facility] Last Admin: 02/20/18 17:25 Dose: 50 mg Rosuvastatin Calcium (Crestor) 2.5 mg PO HS [facility] Last Admin: 02/20/18 21:33 Dose: 2.5 mg Simethicone (Mylicon Chew Tab) 80 mg PO Q6 PRN PRN Reason: GI distress - Labs Labs: 02/21/18 06:43 02/21/18 06:43 PT 11.3 SECONDS (9.7-12.2) 02/21/18 06:43 INR 1.0 02/21/18 06:43 APTT 29 SECONDS (21-34) 02/21/18 06:43 - Constitutional Appears: Non-toxic, No Acute Distress - Head Exam Head Exam: ATRAUMATIC, NORMOCEPHALIC - Eye Exam Eye Exam: Normal appearance - ENT Exam ENT Exam: Mucous Membranes Moist - Neck Exam Neck Exam: absent: Lymphadenopathy - Respiratory Exam Respiratory Exam: Clear to Ausculation Bilateral, NORMAL BREATHING PATTERN. absent: Accessory Muscle Use, Rales, Rhonchi, Wheezes, Respiratory Distress - Cardiovascular Exam Cardiovascular Exam: REGULAR RHYTHM, +S1 - GI/Abdominal Exam GI & Abdominal Exam: Soft. absent: Distended, Firm, Guarding, Rigid, Tenderness - Extremities Exam Extremities Exam: absent: Calf Tenderness, Pedal Edema - Neurological Exam Neurological Exam: Alert, Awake, Oriented x3 - Psychiatric Exam Psychiatric exam: Normal Affect, Normal Mood - Skin Skin Exam: Dry, Warm Assessment and Plan - Assessment and Plan (Free Text) Plan: Dyspnea - Cardiology consulted, Dr. Wylie * Patient's COPD is under control and had a normal chemical stress test on 02/09. * Patient went for cardiac cath with Dr. Wylie this morning, 02/21/18. * 1. Normal Coronaries * 2. Normal EF (70%). LV EDP 14 * 3. Mild Pulmonary HTN (PASP=35/6/ Mean 19) * Continue IV hydration for 12 hours * Clear to discharge tomorrow from cardiac standpoint. - D-Dimer elevated at 428, elevated at last visit as well - CTA 02/19 * No evidence of thromboembolus. Cardiomegaly. [id number] pulmonary vascular congestion. - BNP 137 - CXR shows no active disease - O2, NC 2L prn Chest Pain - resolved - R/O ACS -FLIP negative x3 GERD - Protonix 40mg po qd - Simethicone 80mg q6 prn - f/u H. Pylori stool - EGD 2015 showed mucosal erythema, consider repeat - Consider re-evaluation of hiatal hernia COPD - Albuterol 0.083% 2.5mg INH q6 prn - Singulair 10mg PO HS HTN - HCTZ 25mg PO daily - Cozaar 100mg PO daily Prophylactic Care - DVT ppx, Heparin 5000 sc q8 - GI ppx, protonix 40mg po DISPO: Patient is to receive IVF overnight and will plan to discharge tomorrow morning. All medical management per Dr. Aury Swan Elin PGY2
[2018-02-21] MEDS ORDERED: Midazolam 2 MG/2 ML VIAL ONE (10:15)
[2018-02-21] MEDS ORDERED: Lidocaine 2% MPF (5 ml) Inj ONE (10:38)
--- NOTE | 2018-02-21 11:17 | CP.PCM.PN ---
Subjective - Date & Time of Evaluation Date of Evaluation: 02/21/18 Time of Evaluation: 11:13 - Subjective Subjective: Patient s/p [facility] 1. Normal Coronaries 2. Normal EF (70%). LV EDP 14 3. Mild Pulmonary HTN (PASP=35/6/ Mean 19) Medical management IV hydration for 12 hours Resume diet OOB to ambulate after 3pm today Check BUN/Creatinine in am cardiac point of view cleared for d/c tomorrow Objective - Vital Signs/Intake and Output Vital Signs (last 24 hours): Temp Pulse Resp BP Pulse Ox 97.9 F 76 20 117/60 99 02/21/18 08:17 02/21/18 08:17 02/21/18 08:17 02/21/18 08:17 02/21/18 08:17 Intake and Output: 02/21/18 02/21/18 06:59 18:59 Intake Total 0 Balance 0 - Medications Medications: Current Medications Albuterol Sulfate (Albuterol 0.083% Inhal Reina (2.5 Mg/3 Ml) Ud) 2.5 mg INH RQ6 PRN PRN Reason: Shortness of Breath Last Admin: 02/21/18 07:30 Dose: 2.5 mg Heparin Sodium (Porcine) (Heparin) 5,000 units SC Q8 [facility] Last Admin: 02/21/18 06:11 Dose: Not Given Hydrochlorothiazide (Hydrodiuril) 25 mg PO DAILY [facility] Last Admin: 02/20/18 09:19 Dose: 25 mg Losartan Potassium (Cozaar) 100 mg PO DAILY [facility] Last Admin: 02/21/18 09:11 Dose: Not Given Meclizine HCl (Antivert) 25 mg PO BID [facility] Last Admin: 02/20/18 17:25 Dose: 25 mg Montelukast Sodium (Singulair) 10 mg PO HS [facility] Last Admin: 02/20/18 21:33 Dose: 10 mg Pantoprazole Sodium (Protonix Ec Tab) 40 mg PO DAILY [facility] Last Admin: 02/20/18 09:19 Dose: 40 mg Pneumococcal Polyvalent Vaccine (Pneumovax 23 Vaccine) 0.5 ml IM .ONCE ONE Stop: 02/22/18 10:01 Pregabalin (Lyrica) 50 mg PO BID [facility] Last Admin: 02/20/18 17:25 Dose: 50 mg Rosuvastatin Calcium (Crestor) 2.5 mg PO HS [facility] Last Admin: 02/20/18 21:33 Dose: 2.5 mg Simethicone (Mylicon Chew Tab) 80 mg PO Q6 PRN PRN Reason: GI distress - Labs Labs: 02/21/18 06:43 02/21/18 06:43 PT 11.3 SECONDS (9.7-12.2) 02/21/18 06:43 INR 1.0 02/21/18 06:43 APTT 29 SECONDS (21-34) 02/21/18 06:43
[2018-02-21] MEDS ORDERED: Sodium Chloride 0.45% 1,000 ML IV SCH (11:45)
[2018-02-21 12:04] LABS: ARTERIAL BLOOD GAS HCO3 27.7 mmol/L (21-28); ARTERIAL BLOOD GAS PCO2 40 mm/Hg (35-45); ARTERIAL BLOOD GAS PH 7.45 (7.35-7.45); ARTERIAL BLOOD GAS PO2 130 mm/Hg (80-100)
[2018-02-21 12:05] LABS: ARTERIAL BLOOD GAS O2 SAT 99.1 % (95-98)
[2018-02-21 12:06] LABS: VENOUS BLOOD GAS PCO2 47 mmHg (40-60); VENOUS BLOOD GAS PO2 45 mm/Hg (30-55); VENOUS BLOOD PH 7.38 (7.32-7.43)
[2018-02-21] MEDS: Pantoprazole 40 mg EC Tab PO SCH (13:16)
[2018-02-21] MEDS: Rosuvastatin Calcium 2.5 mg Tab PO SCH (22:08)
[2018-02-22 08:14] VITALS: TEMP 97.6
[2018-02-22 08:46] LABS: BASO % 0.3 % (0.0-2.0); EOS # 0.1 K/uL (0.0-0.7); EOS % 1.8 % (0.0-4.0); HEMOGLOBIN 11.4 g/dL (11.0-16.0); LYMPH # 1.7 K/uL (1.0-4.3); MEAN CELL VOLUME 95.9 fL (81.0-99.0); MEAN CORPUSCULAR HEMOGLOBIN 32.4 pg (27.0-31.0); MEAN CORPUSCULAR HGB CONC 33.8 g/dL (33.0-37.0); MEAN PLATELET VOLUME 7.9 fL (7.2-11.7); MONO # 0.7 K/uL (0.0-0.8); MONO % 9.4 % (0.0-10.0); NEUT # 5.1 K/uL (1.8-7.0); NEUT % 66.5 % (50.0-75.0); NRBC % 0.1 % (0.0-2.0); RBC 3.53 Mil/uL (3.80-5.20); RED CELL DISTRIBUTION WIDTH 13.5 % (11.5-14.5); WHITE BLOOD COUNT 7.7 K/uL (4.8-10.8)
[2018-02-22 08:53] LABS: ALB/GLOB RATIO 1.2 (1.0-2.1); ALBUMIN 3.7 g/dL (3.5-5.0); CALCIUM 9.4 mg/dl (8.6-10.4)
[2018-02-22 09:03] VITALS: BP 109/65; PULSE 73
[2018-02-22] MEDS: Pantoprazole 40 mg EC Tab PO SCH (09:03)
--- NOTE | 2018-02-22 09:04 | CP.PCM.PN ---
Subjective - Date & Time of Evaluation Date of Evaluation: 02/22/18 Time of Evaluation: 09:04 - Subjective Subjective: PGY2 Medicine Note for Dr. Jeffers Patient seen and examined patient this morning. No acute events overnight. Patient is feeling well without any chest pain. She reports some foot burning pain overnight. Patient has no other complaints at this time. Objective - Vital Signs/Intake and Output Vital Signs (last 24 hours): Temp Pulse Resp BP Pulse Ox 97.6 F 73 20 109/65 100 02/22/18 08:12 02/22/18 09:02 02/22/18 08:12 02/22/18 09:02 02/22/18 08:12 Intake and Output: 02/22/18 02/22/18 06:59 18:59 Intake Total 330 Balance 330 - Medications Medications: Current Medications Albuterol Sulfate (Albuterol 0.083% Inhal Reina (2.5 Mg/3 Ml) Ud) 2.5 mg INH RQ6 PRN PRN Reason: Shortness of Breath Last Admin: 02/21/18 07:30 Dose: 2.5 mg Heparin Sodium (Porcine) (Heparin) 5,000 units SC Q8 [facility] Last Admin: 02/22/18 06:47 Dose: 5,000 units Hydrochlorothiazide (Hydrodiuril) 25 mg PO DAILY [facility] Last Admin: 02/22/18 09:03 Dose: 25 mg Losartan Potassium (Cozaar) 100 mg PO DAILY [facility] Last Admin: 02/22/18 09:03 Dose: 100 mg Meclizine HCl (Antivert) 25 mg PO BID [facility] Last Admin: 02/22/18 09:03 Dose: 25 mg Montelukast Sodium (Singulair) 10 mg PO [facility] Last Admin: 02/21/18 22:07 Dose: 10 mg Pantoprazole Sodium (Protonix Ec Tab) 40 mg PO DAILY [facility] Last Admin: 02/22/18 09:03 Dose: 40 mg Pneumococcal Polyvalent Vaccine (Pneumovax 23 Vaccine) 0.5 ml IM .ONCE ONE Stop: 02/22/18 10:01 Pregabalin (Lyrica) 50 mg PO BID [facility] Last Admin: 02/22/18 09:03 Dose: 50 mg Rosuvastatin Calcium (Crestor) 2.5 mg PO [facility] Last Admin: 02/21/18 22:08 Dose: 2.5 mg Simethicone (Mylicon Chew Tab) 80 mg PO Q6 PRN PRN Reason: GI distress - Labs Labs: 02/22/18 08:33 02/22/18 08:33 PT 11.3 SECONDS (9.7-12.2) 02/21/18 06:43 INR 1.0 02/21/18 06:43 APTT 29 SECONDS (21-34) 02/21/18 06:43 - Additional Findings Additional findings: - Constitutional Appears: Non-toxic, No Acute Distress - Head Exam Head Exam: ATRAUMATIC, NORMOCEPHALIC - Eye Exam Eye Exam: Normal appearance - ENT Exam ENT Exam: Mucous Membranes Moist - Neck Exam Neck Exam: absent: Lymphadenopathy - Respiratory Exam Respiratory Exam: Clear to Ausculation Bilateral, NORMAL BREATHING PATTERN. absent: Accessory Muscle Use, Rales, Rhonchi, Wheezes, Respiratory Distress - Cardiovascular Exam Cardiovascular Exam: REGULAR RHYTHM, +S1 - GI/Abdominal Exam GI & Abdominal Exam: Soft. absent: Distended, Firm, Guarding, Rigid, Tenderness - Extremities Exam Extremities Exam: absent: Calf Tenderness, Pedal Edema - Neurological Exam Neurological Exam: Alert, Awake, Oriented x3 - Psychiatric Exam Psychiatric exam: Normal Affect, Normal Mood - Skin Skin Exam: Dry, Warm Assessment and Plan - Assessment and Plan (Free Text) Plan: Dyspnea - Cardiology consulted, Dr. Wylie * Patient's COPD is under control and had a normal chemical stress test on 02/09. * Patient went for cardiac cath with Dr. Wylie this morning, 02/21/18. * 1. Normal Coronaries * 2. Normal EF (70%). LV EDP 14 * 3. Mild Pulmonary HTN (PASP=35/6/ Mean 19) * Continue IV hydration for 12 hours * Clear to discharge tomorrow from cardiac standpoint. - D-Dimer elevated at 428, elevated at last visit as well - CTA 02/19 * No evidence of thromboembolus. Cardiomegaly. [id number] pulmonary vascular congestion. - BNP 137 - CXR shows no active disease - O2, NC 2L prn Chest Pain - resolved - R/O ACS -FLIP negative x3 GERD - Protonix 40mg po qd - Simethicone 80mg q6 prn - H. Pylori stool negative - EGD 2015 showed mucosal erythema, consider repeat - Consider re-evaluation of hiatal hernia COPD - Albuterol 0.083% 2.5mg INH q6 prn - Singulair 10mg PO HS HTN - HCTZ 25mg PO daily - Cozaar 100mg PO daily Prophylactic Care - DVT ppx, Heparin 5000 sc q8 - GI ppx, protonix 40mg po Patient was discharged on 02/22/18 with the following instructions: Patient is to be discharged home per Dr. Jeffers Patient is to follow up with Dr. Jeffers in his office upon discharge. Patient is to continue taking her medications as directed. If patient experiences any new or concerning symptoms, please contact Dr. Jeffers's office. All medical management per Dr. Aury Swan Elin PGY2
[2018-02-22] MEDS ORDERED: Pneumococcal 23-Valent Vaccine IM ONE (10:00)
[2018-02-22 12:45] VITALS: O2SAT 97
--- NOTE | 2018-03-01 05:52 | CARDCATH ---
PROCEDURE DATE: 02/21/2018 PROCEDURES: 1. Right heart catheterization. 2. Left heart catheterization. 3. Coronary angiogram. REFERRING PHYSICIAN: Barrett Jeffers M.D. PERFORMING PHYSICIAN: Taj Gracia M.D. CLINICAL INDICATIONS: 1. Dyspnea. 2. Chest pain. 3. Hypertension. 4. Hyperlipidemia. 5. Chronic obstructive lung disease. DESCRIPTION OF PROCEDURE: After informed consent, the patient was prepped and draped in the usual sterile fashion. Lidocaine 2% was given in the right groin for local anesthesia. Using micropuncture technique, 6-Armenian sheath was introduced into right common femoral artery, 7-Armenian sheath was introduced into right common femoral vein. Using Cohoes-Estrella catheter, right heart catheterization was performed. Cohoes-Estrella catheter was inserted into the pulmonary artery. Cardiac output, cardiac index were calculated using Cesar method. A JL4 diagnostic catheter was engaged into left main coronary artery. Contrast injected and left coronary angiogram was done. The catheter was exchanged to JR4 6-Armenian diagnostic catheter. The catheter was inserted into left ventricle across the aortic valve. LVEDP measured. Contrast was injected and LV angiogram was done. The catheter was pulled back. Gradient across the aortic valve was measured. Then, the same catheter engaged into right coronary artery. Contrast was injected and right coronary angiogram was done. Findings of the left heart catheterization: 1. Left main coronary artery is patent. 2. LAD and diagonal branches are patent. 3. Left circumflex and obtuse marginal branches are patent. 4. Right coronary artery is dominant and patent. 5. LV ejection fraction is approximately 60%. No wall motion abnormality noted. EDP is 17. No gradient across the aortic valve. Findings of the right heart catheterization: Pressures in mmHg, PA 35/6, mean of 19; RV 40/0, mean of 7; RA 12; PCW 13. Saturations on 2 liter of room air: PA is 83.3%, aorta 99.1%. Cardiac output 8.35 liters/minute. Cardiac index is 3.72. IMPRESSION: 1. Normal coronaries. 2. Normal left ventricular systolic function. 3. Moderate pulmonary hypertension. Taj Wylie MD
--- NOTE | 2018-04-02 07:30 | DS ---
The patient came to the hospital with chief complaint of generalized weakness, fatigue, tiredness, shortness of breath. The patient was placed on bed rest, supportive care, bronchodilators, cardiac workup. The patient will be discharged, to be followed as outpatient. Barrett Jeffers MD
== END 2018-02-22 14:05 | disposition home or self-care (01) ==
LOC: C.ER 08:52 → C.9E 13:35 → C.5S 14:28 → C.9E 14:36 → C.5S 14:54
PROVIDERS: ADMIT Internal Medicine Pulmonary Disease; ATTEND Internal Medicine Pulmonary Disease
DX: R07.89 Other chest pain (principal); K21.9 Gastro-esophageal reflux disease without esophagitis; K44.9 Diaphragmatic hernia without obstruction or gangrene; J44.9 Chronic obstructive pulmonary disease, unspecified; E78.5 Hyperlipidemia, unspecified; H40.9 Unspecified glaucoma; I10 Essential (primary) hypertension; I27.20 Pulmonary hypertension, unspecified; Z87.11 Personal history of peptic ulcer disease; E11.9 Type 2 diabetes mellitus without complications
CPT/HCPCS: 36415; 36600; 71045; 71275; 80053; 81001; 82803; 83880; 84484; 85025; 85378; 85610; 85730; 87338; 93005; 93460; 94640; 96372; 99152; 99153; 99285; C1714; C1760; C1769; C1887; C1893; C1894; G0378; J1644; J2250; J3010; J7030; Q9967